=== PATIENT | male | born 1935 | race Caucasian/White ===

== ENCOUNTER → 2016-08-25 | Outpatient (CLI) | payer BC ==
[~2016-08-25] MED LIST: ASPEC81 PO; CLTP PO; CYT100 PO; FRRS300 PO; GLCSC750600; LPT40 PO; MULT-506 PO; NRV5 PO; NXM/40 PO; OMEG10007 PO; RNXER500 PO; SALSALATE; STLS; [UNRECOGNIZED DRUG - REMARK]
[2016-08-25 13:21] LABS: HEMATOCRIT 40.7 % (42-52); MEAN CELL VOLUME 96.7 fL (80-100); MEAN CORPUSCULAR HGB CONC 34.2 g/dl (32-36); MEAN PLATELET VOLUME 10.6 fL (7.4-10.4); PLATELET COUNT 222 K/uL (130-400); RED BLOOD COUNT 4.21 M/uL (4.7-6.1); WHITE BLOOD COUNT 5.98 K/uL (4.8-10.8)
[2016-08-25 13:52] LABS: ALT/SGPT 23 U/L (12-78); AST/SGOT 17 U/L (15-37); BLOOD UREA NITROGEN 15 mg/dl (7-18); BUN/CREATININE RATIO 13.3 (10-20); CALCIUM 8.9 mg/dl (8.5-10.1); CARBON DIOXIDE 33 mmol/L (21-32); CHLORIDE 102 mmol/L (98-107); GLUCOSE 90 mg/dl (70-99); MAGNESIUM 2.3 mg/dl (1.8-2.4); POTASSIUM 4.1 mmol/L (3.5-5.1); SODIUM 140 mmol/L (136-145)
[2016-08-25 13:55] LABS: CHOLESTEROL 98 mg/dl (0-200); CHOLESTEROL/HDL RATIO 1.4; HDL CHOLESTEROL 71 mg/dl; LDL CHOLESTEROL CALCULATED 8 mg/dl; TRIGLYCERIDES 94 mg/dl (0-150); VERY LOW DENSITY LIPOPROT CALC 19 mg/dl
== END | disposition home or self-care (01) ==
LOC: C.LAB1850 11:57
PROVIDERS: ATTEND Physician Assistant Medical
DX: E78.00 Pure hypercholesterolemia, unspecified (principal); I25.10 Atherosclerotic heart disease of native coronary artery without angina pectoris; I20.9 Angina pectoris, unspecified; I42.9 Cardiomyopathy, unspecified

== ENCOUNTER 2019-07-17 21:14 | Inpatient (IN) ==
[2019-07-18] MEDS ORDERED: ONDANSETRON INJ 2 MG/ML 2 ML VIAL IV PRN ×2 (00:47→14:44)
[2019-07-18] MEDS ORDERED: KETOROLAC TROMETHAMINE 15 MG/ML VIAL IV PRN (02:18)
[2019-07-18] MEDS ORDERED: MoRPHine SULFATE 2 MG/ML CARP IV PRN ×2 (02:22→16:15)
[2019-07-18] MEDS: MoRPHine SULFATE 2 MG/ML CARP IV PRN ×4 (02:41→10:44)
--- NOTE | 2019-07-18 03:24 | History & Physical Report ---
Date of Service July 18, 2019 Assessment & Plan (1) SBO (small bowel obstruction): 84-year-old male with a past medical history of CAD status post CABG x2, hyperlipidemia, GERD, heart disease, hypertension, PAF, BPH, bilateral lower extremity edema, unstable angina who presents as a transfer from [facility] for management and evaluation of SBO. #Small bowel obstruction Patient without a history of small bowel obstructions, or abdominal surgery presented with acute onset of abdominal pain to [facility]. Imaging at their institution was consistent with an SBO, laboratory findings were pertinent for a white count of 14 and a lactate of 2.7. Given nontoxic appearance of the patient, relatively good control of abdominal pain, negative imaging for rupture, negative rebound or guarding, negative signs of acute abdomen. It is hard to discern whether the patient was given oral contrast based on the records obtained from [facility], however if he was an abdominal flatplate obtained in the morning will likely indicate whether it is past the obstruction or not. Will manage conservatively with medical therapy. -Consult general surgery -Make patient n.p.o. -Maintenance IVF with LR @ 100 -Morphine 2 mg every 2 hours as needed for pain may have an additional dose of not effective within 30 minutes of administration -Obtain abdominal flatplate in the morning -Monitor for signs and symptoms of progression to acute abdomen #Esophageal reflux Patient with a history of chronic GERD well-controlled on esomeprazole 40 mg at home. -We will convert to IV ranitidine 50 mg every 8 hours #Paroxysmal atrial fibrillation/flutter Patient with history of paroxysmal atrial fibrillation/flutter chronically anticoagulated with apixaban. Surgery of [facility] was uncomfortable with patient's anticoagulation status and therefore was unable to provide surgical backup to the hospitalist team. Patient was subsequently transferred to [facility]. -Holding apixaban in the event that urgent surgery is required -Would consider starting heparin tomorrow pending surgery evaluation -Currently regular rate and rhythm and well-controlled -Monitor for now #Unstable angina -Holding antianginals in the setting of critical illness as we would want to be aware of chest pain should occur #History of BPH with urinary obstruction Well-controlled with tamsulosin 0.4 mg daily while at home, holding in the setting of SBO -Resume tamsulosin when able #Allergies Well-controlled with daily sertraline holding in the setting of SBO -Resume sertraline when able #Hypercholesterolemia/coronary artery disease Patient with history of extensive coronary artery disease requiring CABG x2. Patient currently on maximum dose of atorvastatin 80 mg daily. Holding in the setting of SBO -Resume atorvastatin when able #Peripheral edema Patient followed by [facility] cardiology for problems as described above. He has a history of lower extremity edema which developed around the holidays echo on 06/08/2019 showed an LVEF of 40% with global hypokinesis patient is asymptomatic from a heart failure perspective with the exception of mild pedal edema. Given the fact that he has no heart failure symptoms, will hold p.o. diuretics and forego replacing with IV. -Resume triamterene hydrochlorothiazide when able FENa: N.p.o. Code Status: Full DVT PPX: Mechanical PT/OT: Not indicated Dispo: Mita Perez MD PGY 2, FCM This chart was completed utilizing [employer] dictation voice recognition software. Grammatical errors, random word insertions, pronoun errors, and in complete sentences are an occasional consequence of the system. Any questions or concerns about the content, text, or information contained within the body of this dictation should be addressed directly to the physician for clarification. (2) Esophageal reflux: (3) Atrial flutter, paroxysmal: (4) Unstable angina: (5) Hypercholesterolemia: (6) Allergies: (7) Benign prostatic hyperplasia with urinary obstruction: (8) Paroxysmal atrial fibrillation: History of Present Illness 84-year-old male with a past medical history of CAD status post CABG x2, hyperlipidemia, GERD, heart disease, hypertension, PAF, BPH, bilateral lower extremity edema, unstable angina who presents as a transfer from [facility] for management and evaluation of SBO. Patient reports the symptoms started this afternoon rapidly. He began with his abdomen becoming sore he described the pain is cyclic in nature ranging from a 10 out of 10 to a 1 out of 10. This persisted for a period of an hour or so at which point his urged him to go to urgent care he presented. He presented to urgent care and was evaluated and subsequently recommended to proceed to the ER. He proceeded [facility] ER where he was evaluated, his white count was determined to be 14, lactate 2.7 glucose 142. He was afebrile but hypertensive at [facility], CT of the abdomen/pelvis was obtained and demonstrated findings consistent with SBO with a possible transition point in the left lower quadrant. No free air or free fluid was observed. Tree-in-bud opacities in the right lower lobe likely representing small airway disease of infection to amatory etiology. [facility] surgery was consulted and reported he will not be able to have surgery secondary to Eliquis furthermore the surgeon goes off call in 2 days. The [facility] hospital service was unwilling to accept him without surgical backup and therefore is transferred to [facility] for further evaluate admission and management of a small bowel obstruction. Upon arrival to [facility] the patient was not no acute distress lying in bed comfortably. He reported his abdominal pain was previously well controlled at [facility] with Dilaudid however has since been worsening, requesting additional analgesia. Otherwise patient denies any recent fevers, chills, nausea, vomiting, diarrhea, chest pressure, chest pain, shortness of breath, focal abdominal pain, unremitting abdominal pain, CVA tenderness, or other concerning signs or symptoms. Patient does report a recent history of constipation occurring today, he strained significantly will try to have a bowel movement earlier today and this causes abdominal pain to worsen in nature. Patient reports last bowel movement was yesterday evening. He has been n.p.o. throughout the day. Acute concerns at present relate to resolution of his SBO. Primary Care Provider: Murali Tracy Allergies Allergy/AdvReac Type Severity Reaction Status Date / Time oxymetazoline AdvReac Unknown Fainting Verified 07/18/19 02:21 phenylephrine AdvReac Unknown headache, Unverified 06/14/19 10:49 high BP Home Medications Home Medications Medication Instructions Recorded Confirmed Type cetirizine 10 mg tablet 10 mg PO DAILY tab 01/01/19 07/18/19 History docusate sodium 100 mg tablet 250 mg PO BID tab 01/01/19 07/18/19 History esomeprazole magnesium 40 mg 40 mg PO DAILY #90 cap 01/01/19 06/14/19 History capsule,delayed release ferrous sulfate 325 mg (65 mg 325 mg PO BID tab 01/01/19 06/14/19 History iron) tablet isosorbide dinitrate 10 mg tablet 5 mg PO ONCE PRN #90 tab 08/12/19 02/26/20 History multivitamin 1 tab PO DAILY 01/01/19 07/18/19 History nitroglycerin 0.4 mg sublingual 0.4 mg SL Q5M PRN #1 tab 01/01/19 06/14/19 History tablet triamterene 37.5 1 cap PO DAILY #90 cap 01/01/19 07/18/19 History mg-hydrochlorothiazide 25 mg capsule apixaban 2.5 mg tablet 2.5 mg PO BID 01/15/19 07/18/19 History isosorbide mononitrate 120 mg 240 mg PO DAILY #180 tab 04/24/19 07/18/19 Rx tablet,extended release 24 hr atorvastatin 80 mg tablet 80 mg PO DAILY #90 tab 07/16/19 07/18/19 Rx Past Med/Surg History Medical History Atrial flutter, paroxysmal (Acute) Benign prostatic hyperplasia with urinary obstruction (Acute) CAD in [place] artery (Acute) Edema of both legs (Acute) Esophageal reflux (Acute) Hypercholesterolemia (Acute) Imbalance (Acute) Paroxysmal atrial fibrillation Unstable angina (Acute) Social History Preferred Language: Setswana Communication Ability: Effective Jack Prizer Required: No Beliefs That Will Affect Care: None marital status: Current Living Situation: Spouse and Family Other Information That Helps Us Care for You: No Feels Safe at Home: Yes Safety Concerns: Feels Safe At This Time Smoking Status: Never smoker Do You Dip or Chew Tobacco: No ; Second Hand Exposure: No ; Tobacco Cessation Education Requested by Patient: No Hx Alcohol Use: Yes Alcohol type: wine Hx Substance Use: No Review of Systems Review of Systems: All systems reviewed & are unremarkable except as noted in HPI & below Physical Exam Physical Exam: General: Elderly gentleman appearing his stated age lying in bed in no acute distress HEENT: Normocephalic atraumatic, Neck: Normal to visual inspection, trachea midline, did not appreciate significant JVD Cardiac: Regular rate and rhythm I did not appreciate significant murmurs rubs or gallops, normal S1, normal S2, 1+ pedal edema bilaterally, negative calf tenderness Respiratory: Diminished breath sounds bilaterally with intermittent rhonchi appear to clear with coughing symmetrical chest expansion no increased work of breathing GI: Hyperactive bowel sounds present, soft, tender throughout all abdominal quadrants, no rebound, no guarding, no focal tenderness MSK: Moves all extremities Skin: No acute changes Neuro: Alert and oriented x4 Psych: Calm and cooperative Results & Data Vital Signs (Past 12 Hours) Vital Signs Temp Pulse Resp BP Pulse Ox 07/18/19 00:15 37.0 C 55 L 16 125/68 98 Code Status & VTE Plan Code Status Full Supervising Physician Co-Signing Physician Notes Attending addendum: I have physically seen this patient, have supervised the medical residents activities, and agree with the H&P unless as otherwise noted. Assessment and Plan: Small bowel obstruction- Patient initially presented to outside [facility] emergency department with complaint of acute onset of abdominal pain. Work-up at that time revealed a small bowel obstruction. Patient has no previous obstructions or abdominal surgeries. He was accepted in transfer to [facility] for further evaluation and treatment. NPO LR at 100 mils per hour Zofran 4 mg IV every 6 hours as needed. Zosyn 3.375 mg IV every 8 hours Acetaminophen 1 g IV every 8 hours PRN mild pain or temperature. Morphine sulfate 2 mg IV every 3 hours as needed severe pain. GERD- Holding Nexium 40 mg p.o. daily. Famotidine 20 mg IV every 12 hours. Remainder of orders and notations as noted. Resident Activity Tracking Resident Involvement: Resident Care Provided Care Provided: Adult Hospital Medicine
[2019-07-18] MEDS: LACTATED RINGER'S 1,000 ML IV SCH ×3 (04:38→19:20)
--- NOTE | 2019-07-18 07:54 | Surgery Consultation ---
Date of Consultation July 18, 2019 This very pleasant 84-year-old gentleman was transferred from [facility] last evening with a history of bowel obstruction that is started approximately 24 or so hours prior to transfer he describes his pain intermittent up to a 10 down to a 2 nauseated but no emesis and never had any previous pain like this before Denies any previous surgical history is significant coronary artery disease on Eliquis States has had recent weight loss but this was attributed mostly to the situation where he has been taking care of his daughter who is 52 years old and her son after she had an accident that required multiple surgeries on her neck and clavicle In general he is enjoyed good health other than the coronary artery disease and is been seen here regularly by our vacuum 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 operator Assessment & Plan (1) SBO (small bowel obstruction): I discussed with the patient the current situation at this time there is no urgency into the surgery but is concerning that he had significant pain and by CAT scan report his bowel obstruction without any previous surgery I did mention to him that we would probably get further studies including an upper GI series with small bowel follow-through to visualize the possibility of a primary small bowel tumor as the cause of the obstruction We were able finally to download the disc that was sent with the patient last evening and I reviewed the CT scan of the abdomen with our radiologist and I felt that possibility may be a total transition point down in the pelvis and decompressed terminal ileum there is no true evidence of any internal hernia there is no evidence of any bowel wall ischemia no pneumatosis may have a little mesenteric edema At this point as stated above we will proceed with the upper GI with small bowel follow-through keep n.p.o. he has been off Eliquis now and if anything needs to be explored but there is no urgency at this time unless his clinical situation deteriorates Lactic acid was elevated 2.7 from outside hospital we will go ahead and repeated now Present on Admission?: Yes History of Present Illness Reason for Consultation: Bowel obstruction Attending Physician: Jack Zhou MD Allergies Allergy/AdvReac Type Severity Reaction Status Date / Time oxymetazoline AdvReac Unknown Fainting Verified 07/18/19 02:21 phenylephrine AdvReac Unknown headache, Unverified 06/14/19 10:49 high BP Home Medications Home Medications Medication Instructions Recorded Confirmed Type cetirizine 10 mg tablet 10 mg PO DAILY tab 01/01/19 07/18/19 History docusate sodium 100 mg tablet 250 mg PO BID tab 01/01/19 07/18/19 History esomeprazole magnesium 40 mg 40 mg PO DAILY #90 cap 01/01/19 06/14/19 History capsule,delayed release ferrous sulfate 325 mg (65 mg 325 mg PO BID tab 01/01/19 06/14/19 History iron) tablet isosorbide dinitrate 10 mg tablet 5 mg PO ONCE PRN #90 tab 01/01/19 07/18/19 History multivitamin 1 tab PO DAILY 01/01/19 07/18/19 History nitroglycerin 0.4 mg sublingual 0.4 mg SL Q5M PRN #1 tab 01/01/19 06/14/19 History tablet triamterene 37.5 1 cap PO DAILY #90 cap 01/01/19 07/18/19 History mg-hydrochlorothiazide 25 mg capsule apixaban 2.5 mg tablet 2.5 mg PO BID 01/15/19 07/18/19 History isosorbide mononitrate 120 mg 240 mg PO DAILY #180 tab 04/24/19 07/18/19 Rx tablet,extended release 24 hr atorvastatin 80 mg tablet 80 mg PO DAILY #90 tab 07/16/19 07/18/19 Rx Patient History Medical History Atrial flutter, paroxysmal (Acute) Benign prostatic hyperplasia with urinary obstruction (Acute) CAD in [place] artery (Acute) Edema of both legs (Acute) Esophageal reflux (Acute) Hypercholesterolemia (Acute) Imbalance (Acute) Paroxysmal atrial fibrillation Unstable angina (Acute) Social History Preferred Language: Sudanese Communication Ability: Effective Formulation Scientist Required: No Beliefs That Will Affect Care: None Current Living Situation: Spouse and Family Other Information That Helps Us Care for You: No Feels Safe at Home: Yes Safety Concerns: Feels Safe At This Time Smoking Status: Never smoker Do You Dip or Chew Tobacco: No ; Second Hand Exposure: No ; Tobacco Cessation Education Requested by Patient: No Hx Alcohol Use: Yes Alcohol type: wine Hx Substance Use: No Physical Exam Physical Exam: This morning is alert coherent not in any distress is not complaining of any abdominal pain in fact he had a the pain medicine given to him last evening and slept well during the night Constitutional: WD/WN, vitals as above well developed, well nourished and average body habitus Eyes: PERRL, conjunctivae normal, anicteric sclerae ENMT: external ear and nose normal, oropharynx normal Neck: trachea midline, no thyromegaly Respiratory: normal respiratory effort, lungs clear to auscultation Cardiovascular: RRR, no murmur, no edema Gastrointestinal (Abdomen): The abdomen is completely benign no tenderness no guarding although appears to be minimally distended there is no inguinal hernias Results & Data Vital Signs (Past 12 Hours) Vital Signs Temp Pulse Resp BP Pulse Ox 07/18/19 07:00 37.1 C 59 L 16 144/75 H 97 07/18/19 00:15 37.0 C 55 L 16 125/68 98 PG Care Time/CCT Total # of Minutes Spent Total Time Spent with Patient: Total time spent is greater than 50% in coordination of care (as documented) at patient's floor/unit and/or counseling patient: Coding Level of Care Code 35935 Inpt Consult Level 4 Diagnoses SBO (small bowel obstruction) K56.609
[2019-07-18] MEDS ORDERED: POLYETHYLENE (MIRALAX) 17 GM PACK PO SCH (09:00)
[2019-07-18 10:32] LABS: Basophils # (auto) 0.02 K/uL (0-0.2); Basophils % (auto) 0.1 %; Eosinophils # (auto) 0.01 K/uL (0-0.5); Eosinophils % (auto) 0.1 %; Hematocrit (blood only) 42.2 % (42-52); Hemoglobin 14.2 g/dL (14.0-18.0); Immature Granulocytes # (auto) 0.03 K/uL (0.00-0.02); Immature Granulocytes % (auto) 0.2 %; Lymphocytes # (auto) 0.66 K/uL (1.2-3.4); Lymphocytes % (auto) 4.1 %; Mean Corpuscular Hemoglobin 32.9 pg (25-34); Mean Corpuscular Hgb Conc 33.6 g/dL (32-36); Mean Corpuscular Volume 97.7 fL (80-100); Mean Platelet Volume 10.8 fL (7.4-10.4); Monocytes # (auto) 1.23 K/uL (0.11-0.59); Monocytes % (auto) 7.7 %; Neutrophils # (auto) 14.08 K/uL (1.4-6.5); Neutrophils % (auto) 87.8 %; Platelet Count 160 K/uL (130-400); RDW Coefficient of Variation 15.8 % (11.5-14.5); Red Blood Count 4.32 M/uL (4.7-6.1); White Blood Count 16.03 K/uL (4.8-10.8)
[2019-07-18 10:48] LABS: BUN Creatinine Ratio 15.2 (10-20); Blood Urea Nitrogen 16 mg/dl (7-18); Calcium 9.7 mg/dl (8.5-10.1); Carbon Dioxide 29 mmol/L (21-32); Chloride 105 mmol/L (98-107); Est GFR (African American) 77.1; Est GFR (Non-African American) 66.6; Glucose 124 mg/dl (70-99); Potassium 3.8 mmol/L (3.5-5.1); Sodium 140 mmol/L (136-145)
--- NOTE | 2019-07-18 12:45 | History & Physical Bridge Note ---
Date of Service July 18, 2019 History & Physical Bridge Note I have examined the patient, reviewed the History & Physical and in the interval since the performance of the History & Physical I have noted the following changes of clinical significance: no changes noted Been following the upper GI with small bowel follow-through proximal and 90 minutes still in the small bowel and appears to have more distention loop of bowel down towards the pelvis patient clinically has hiccups now has not vomited but is complaining more abdominal pain the abdomen exam is a little bit more distended than it was therefore I recommended that we proceed with exploratory lap at this time risk and complications were explained to patient including the possibility of bowel resection and bleeding infection he last took Eliquis last yesterday discussed with OR and they will be available fairly quickly thank you
--- NOTE | 2019-07-18 12:58 | Anesthesiology Consultation ---
Date of Service July 18, 2019 Assessment & Plan Chart Review Chart Review: Acceptable Risk for Surgery and Patient NOT seen in Pre Admission Testing Consults Requested none ASA [id number] Proposed Anesthesia Anesthesia Type: General Anesthesia Line Insertion: Arterial line Risk / Benefits Reviewed With: PT / POA / Parent / Guardian, Accepts Plan and Informed Consent Obtained History Surgery Operation Date: 07/18/19 10:25 Proposed Procedures p Exploratory Laparotomy - Bernardo Gutiérrez MD Height/Weight Weight: 68.1 kg Allergies Allergy/AdvReac Type Severity Reaction Status Date / Time oxymetazoline AdvReac Unknown Fainting Verified 07/18/19 02:21 phenylephrine AdvReac Unknown headache, Unverified 06/14/19 10:49 high BP Medications Home Medications Medication Instructions Recorded Confirmed Last Taken cetirizine 10 mg tablet 10 mg PO DAILY tab 01/01/19 07/18/19 Unknown docusate sodium 100 mg tablet 250 mg PO BID tab 01/01/19 07/18/19 Unknown esomeprazole magnesium 40 mg 40 mg PO DAILY #90 cap 01/01/19 06/14/19 Unknown capsule,delayed release ferrous sulfate 325 mg (65 mg 325 mg PO BID tab 01/01/19 06/14/19 Unknown iron) tablet isosorbide dinitrate 10 mg tablet 5 mg PO ONCE PRN #90 tab 01/01/19 07/18/19 Unknown multivitamin 1 tab PO DAILY 01/01/19 07/18/19 Unknown nitroglycerin 0.4 mg sublingual 0.4 mg SL Q5M PRN #1 tab 01/01/19 06/14/19 Unknown tablet triamterene 37.5 1 cap PO DAILY #90 cap 01/01/19 07/18/19 Unknown mg-hydrochlorothiazide 25 mg capsule apixaban 2.5 mg tablet 2.5 mg PO BID 01/15/19 07/18/19 Unknown isosorbide mononitrate 120 mg 240 mg PO DAILY #180 tab 04/24/19 07/18/19 Unknown tablet,extended release 24 hr atorvastatin 80 mg tablet 80 mg PO DAILY #90 tab 07/16/19 07/18/19 Unknown Active Medications Generic Name Dose Route Start Last Admin Trade Name Freq PRN Reason Stop Dose Admin Ranitidine HCl 50 mg/ Dextrose 102 mls @ 200 mls/hr 07/18/19 04:00 07/18/19 11:59 IV 08/17/19 03:59 200 mls/hr Q8H KASI Administration Lactated Ringer's 1,000 mls @ 150 mls/hr 07/18/19 03:30 07/18/19 12:00 Lr IV 08/17/19 03:29 100 mls/hr .[id number] KASI Administration Morphine Sulfate 2 mg 07/18/19 02:30 07/18/19 10:44 Morphine Sulfate IV 08/01/19 02:21 2 mg Q2H PRN Administration Pain Polyethylene Glycol 17 gm 07/18/19 09:00 07/18/19 10:13 Miralax Powder Packet PO 08/17/19 08:59 Not Given BID KASI NPO Date Last Intake of Fluids: 07/16/19 Time Last Intake of Fluids: 17:00 Date Last Intake of Solids: 07/16/19 Time Last Intake of Solids: 17:00 Past Medical History Medical History Atrial flutter, paroxysmal (Acute) Benign prostatic hyperplasia with urinary obstruction (Acute) CAD in [place] artery (Acute) Edema of both legs (Acute) Esophageal reflux (Acute) Hypercholesterolemia (Acute) Imbalance (Acute) Paroxysmal atrial fibrillation Unstable angina (Acute) Exercise / Class Metabolic Activity III < 4 Walking/Shop/Light housework Past Anesthesia History No Hx of Anesthesia Complications and No Family Hx of Anesthesia Complications History of PONV No Hx of PONV and No Hx of Motion Sickness Social History Smoking Status: Never smoker Do You Dip or Chew Tobacco: No Hx Alcohol Use: Yes Alcohol type: wine alcohol intake frequency: a few times a month Hx Substance Use: No substance use type: does not use Physical Exam Vital Signs Last Vital Signs Temp 37.1 C 07/18/19 07:00 Pulse 59 L 07/18/19 07:00 Resp 16 07/18/19 07:00 BP 144/75 H 07/18/19 07:00 Pulse Ox 97 07/18/19 07:00 Constitutional not obese ENMT Mouth: + dentition abnormality, + edentulous and + poor dentition Thyromental Distance: > or= 3.5 Finger Breadths Mallampati Class: II Neck normal visual inspection, trachea midline and + facial hair; neck extension not limited Respiratory normal respiratory effort Auscultation: lungs clear to auscultation bilaterally Cardiovascular Rate/Rhythm: regular rate and regular rhythm Heart Sounds: no murmur Vessels: no carotid bruit Musculoskeletal Spine: normal cervical ROM Neurologic moves all extremities Motor/Sensory: no sensory deficit Psychiatric Orientation: alert and oriented x 3 Testing Laboratory Results 07/18/19 10:23 07/18/19 10:23
[2019-07-18] MEDS ORDERED: fentaNYL citrate 100 MCG/2 ML VIAL ONE ×2 (13:20→14:01)
[2019-07-18] MEDS ORDERED: ROCURONIUM BROMIDE 10 MG/ML 5 ML VIAL ONE (13:20)
[2019-07-18] MEDS ORDERED: PROPOFOL IV EMULSION 10 MG/ML 20 ML VIAL IV ONE (13:20)
[2019-07-18] MEDS ORDERED: LIDOCAINE HCL 2% 2 ML VIAL/AMP(20MG/ML) INFIL ONE (13:20)
[2019-07-18] MEDS ORDERED: ONDANSETRON INJ 2 MG/ML 2 ML VIAL ONE (13:23)
--- NOTE | 2019-07-18 13:31 | Fluoroscopy Report ---
FL small bowel study CLINICAL HISTORY: Small bowel obstruction.Mid abdominal pain. COMPARISON STUDY: Abdomen and pelvis CT 07/17/2019. FINDINGS: 9 overhead images were obtained of the abdomen and pelvis. Fluoroscopy was not performed fo r the examination. The examination was terminated early due to the fact that the patient was taken to the OR for treatment of the small bowel obstruction. Equipment Operator [employer] images demonstrate a left total hip arthr oplasty. There is contrast within the bladder from the recent CT examination. The patient swallowed d ilated Optiray 300. Total imaging time was 3 hours. Multiple dilated loops of small bowel within the lower abdomen. Contrast did not reach the cecum on this study. Findings are consistent with a persist ent small bowel obstruction. IMPRESSION: Above findings consistent with a persistent small bowel obstruction. The study was termin ated early due to the fact the patient was taken to the OR for treatment of the small bowel obstructi on. ACT 112: Negative or not required by law. Electronically signed by: Damir Redding M.D. 07/18/2019 1:30 PM
[2019-07-18] MEDS ORDERED: ACETAMINOPHEN 1000 MG/100 ML IV IV ONE (13:39)
[2019-07-18] MEDS: BUPIVACAINE 0.5 % 5 MG/1 ML MPF 30ML VIAL ONE ×2 (14:00→14:21)
[2019-07-18] MEDS ORDERED: NEOSTIGMINE METHYLSULFATE 5 MG/5 ML SYR ONE (14:20)
[2019-07-18] MEDS ORDERED: SUCCINYLCHOLINE CHLORIDE 20 MG/ML 10 ML VIAL ONE (14:20)
[2019-07-18] MEDS ORDERED: GLYCOPYRROLATE 0.2 MG/ML VIAL ONE (14:20)
--- NOTE | 2019-07-18 14:28 | Post Operative Brief Note ---
PG Immediate Post Op with CF Date of Surgery July 18, 2019 Pre & Post Diagnosis Operation Date: 07/18/19 10:25 Pre-Op Diagnosis: ACUTE ABDOMINAL PAIN, SMALL BOWEL OBSTRUCTION Post-Op Diagnosis: Multiple Instestinal Webs I identified the patient and participated in the time-out.: Yes Procedure Operation Date: 07/18/19 10:25 Actual Procedures p Exploratory Laparotomy(Not Applicable) - Bernardo Gutiérrez MD Surgeon Bernardo Gutiérrez MD [place] Closer b annalisa delvalle Estimated Blood Loss 5 Findings Consistent with Post-Op Diagnosis Specimens Specimen Description: 1: Urine for Culture
--- NOTE | 2019-07-18 14:38 | Operative Report ---
PG Post Operative Report Pre & Post Diagnosis Operation Date: 07/18/19 10:25 Pre-Op Diagnosis: ACUTE ABDOMINAL PAIN, SMALL BOWEL OBSTRUCTION Post-Op Diagnosis: Multiple Instestinal Webs I identified the patient and participated in the time-out.: Yes Procedure Operation Date: 07/18/19 10:25 Actual Procedures p Exploratory Laparotomy(Not Applicable) - Bernardo Gutiérrez MD The patient was brought into the operating theater general endotracheal anesthesia arterial line was positioned in the left radial NG tube was placed Bonilla catheter inserted the abdomen was prepped with Betadine solution properly draped systemic antibiotics given timeout was had patient was identified we made an incision just the left of the umbilicus distally for approximately 2-1/2 inches deep to the subcutaneous tissue we entered the abdomen where we had patient have some fluid was clear serous in nature the small bowel appeared grossly well perfused we then at this point start eviscerating the patient we started at the ligament of Treitz and one distally there is moderate amount of distention in the small bowel but as we got into the mid jejunal area and tow ards the ileum we could see multiple areas that look like labs initially thought that he may have been one side where the patient may have had a band that was constricting externally the serosa and the bowel wall but we were able to milk this and it went right through and we could feel the wall itself appeared a little bit indurated but certainly not compromising the lumen as we were able to milk this all the way through this 1 area we went further down and we find multiple similar areas that almost look like individual sausage links H extending about 10 cm from one another all of the same consistency but again we were able to push through and milked the contents of the bowel without any problem of note once we are in a distal jejunum and ileum area the ileum appeared to be without any webs as I called days and of normal color and dimension were able to free and milked this all the way down into the cecum the appendix is visualized there was not extremely dilated and the cecum appeared grossly normal. At this point we checked the area for hemostasis and appears satisfactory I had marked 1 of these webs initially with a long silk to go back and retrieve it and since we did not do any significant any resection I cut the suture at the end. I positioned the NG tube at about 55 cm field and in the stomach. The rest of the abdomen did not feel any pathology. The abdomen was then closed with interrupted #1 PDS [id number] shilpi for skin edges dressing was applied estimated blood loss about 5 cc addendum as far as the etiology of this it seems like he is here for from reason had multiple as I call him intestinal webs without any stricture intraluminally of questionable etiology. Cesar joiner and Ruth Ann Joiner most assisted with exposure and retraction on this case Surgeon Bernardo Gutiérrez MD [employer] josefa joiner Estimated Blood Loss 5 Findings Consistent with Post-Op Diagnosis Specimens none Description of Procedure merda I attest to the content of the Intraoperative Record and any orders documented therein. Any exceptions are noted below.
[2019-07-18] MEDS ORDERED: ATROPINE SULFATE 0.1 MG/ML 10ML SYR IV PRN (14:44)
[2019-07-18] MEDS ORDERED: fentaNYL citrate 100 MCG/2 ML VIAL IV PRN (14:44)
[2019-07-18] MEDS ORDERED: NALOXONE HCL 0.4 MG/1 ML VIAL/CARP IV PRN (14:44)
[2019-07-18] MEDS ORDERED: PROMETHAZINE HCL 12.5 MG in SODIUM CHLORIDE 0.9% 50 ML IV PRN (14:44)
[2019-07-18] MEDS ORDERED: LABETALOL HCL IV 5 MG/ML 20ML IV PRN (14:44)
[2019-07-18] MEDS ORDERED: HYDROmorphone INJ 1 MG/ML SYRINGE IV PRN (14:44)
[2019-07-18] MEDS ORDERED: FLUMAZENIL 0.1 MG/1 ML 10 ML VIAL IV PRN (14:44)
--- NOTE | 2019-07-18 15:05 | Electrocardiogram Report ---
Test Reason : Blood Pressure : / mmHG Vent. Rate : 068 BPM Atrial Rate : 214 BPM P-R Int : 000 ms QRS Dur : 094 ms QT Int : 424 ms P-R-T Axes : 118 010 -16 degrees QTc Int : 450 ms Atrial flutter with variable A-V block with premature ventricular or aberrantly conducted complexes Abnormal ECG When compared with ECG of 13-MAR-2015 06:36, Atrial flutter has replaced Sinus rhythm Confirmed by Andrey Yuan ([id number]) on 07/18/2019 3:04:50 PM Referred By: Jack Zhou Confirmed By:Joe Yuan
--- NOTE | 2019-07-18 15:15 | Anesthesiology Progress Note ---
Date of Service July 18, 2019 Anesthesia Post Procedure Vital Signs Vital Signs: Temp Pulse Pulse Resp BP Pulse Ox 07/18/19 15:10 60 16 152/72 H 100 07/18/19 15:00 70 16 151/76 H 100 07/18/19 14:50 68 15 159/70 H 100 07/18/19 14:43 36.4 C L 67 16 159/85 H 94 07/18/19 13:06 36.8 C 64 20 130/72 97 07/18/19 07:00 37.1 C 59 L 16 144/75 H 97 07/18/19 00:15 37.0 C 55 L 16 125/68 98 Transfer of Care Handoff Completed per policy Notes Mental Status: alert / awake / arousable Patient Amnestic to Procedure: Yes Nausea / Vomiting: adequately controlled Pain: adequately controlled Airway Patency, RR, SpO2: stable & adequate BP & HR: stable & adequate Hydration State: stable & adequate Anesthetic Complications: no major complications apparent
[2019-07-18] MEDS ORDERED: MoRPHine SULFATE 4 MG/ML 1 ML CARP\\VIAL IV PRN (16:15)
--- NOTE | 2019-07-18 18:44 | Hospitalist Progress Note ---
Date of Service July 18, 2019 Assessment & Plan (1) SBO (small bowel obstruction): This patient is an 84-year-old male with a past medical history of CAD status post CABG x2, hyperlipidemia, GERD, heart disease, hypertension, PAF, BPH who presents as a transfer from [facility] for management and evaluation of SBO. Small bowel obstruction Patient without a history of small bowel obstructions, or abdominal surgery presented with acute onset of abdominal pain to [facility]. Imaging at their institution was consistent with an SBO, laboratory findings were pertinent for a white count of 14 and a lactate of 2.7. Given nontoxic appearance of the patient, relatively good control of abdominal pain, negative imaging for perforation, negative rebound or guarding, negative signs of acute abdomen, he was transferred here for further evaluation by general surgery -Consult general surgery appreciated-had small bowel follow-through which showed delayed movement of contrast-surgery took him for exploratory laparotomy on 07/18 Findings consistent with multiple bands throughout the small intestine that constricted it and likely contributed to the intestine folding on itself No lysis of adhesions was necessary but the bowel was run and there was no tumor found -Postoperative management as per surgery -Continue n.p.o. status -Continue maintenance IVF with LR @ 100 -Continue morphine and IV Tylenol as needed for pain -He was given 1 dose of cefoxitin #Peripheral edema Patient followed by [facility] cardiology for problems as described above. He has a history of lower extremity edema which developed around the holidays echo on 06/08/2019 showed an LVEF of 40% with global hypokinesis patient is asymptomatic from a heart failure perspective with the exception of mild pedal edema. Given the fact that he has no heart failure symptoms, will hold p.o. diuretics and forego replacing with IV. -Resume triamterene hydrochlorothiazide when able (2) Cardiomyopathy: Previously Resolved Cardiomyopathy (Recent Echo 06/08/2019 at [facility] showed LVEF 40%,Global Hypokinesis) -Watch for volume overload with IV fluids -Holding home diuretic Follows with cardiology-Chas Chen (3) Paroxysmal atrial fibrillation: Patient with history of paroxysmal atrial fibrillation/flutter chronically anticoagulated with apixaban. He is not on any AV mari blocking agents as an outpatient Remains in rate controlled atrial fibrillation here on telemetry -Continue holding Eliquis due to surgery -Consider starting heparin drip when okay with surgery but okay to remain off of it for now -Continue telemetry monitoring (4) Benign prostatic hyperplasia with urinary obstruction: Currently with Bonilla catheter in place -Watch for retention after discontinuation of Bonilla catheter Tamsulosin is mentioned in H&P but I do not see it has been recently prescribed -Consider starting tamsulosin if needed-we will double check with patient if he is on this at home (5) CAD in [place] artery: With a history of CABG No ischemic changes on EKG, no chest pains -Holding home apixaban, atorvastatin, and isosorbide (6) Esophageal reflux: Patient with a history of chronic GERD well-controlled on esomeprazole 40 mg at home. -Continue IV ranitidine 50 mg every 8 hours while n.p.o. (7) Hypercholesterolemia: Holding home atorvastatin while n.p.o. (8) Atrial flutter, paroxysmal: As above (9) Edema of both legs: No current edema -Holding Dyazide from home (10) DVT prophylaxis: Was on Eliquis, currently SCDs only due to surgery Disposition-remain on PCU Admission and Anticipated Discharge Date Admission Date: July 18, 2019 Anticipated date of discharge: 07/21/19 Subjective I saw the patient after he returned from surgery. He reports he was having some abdominal pain at the incision sites but otherwise feeling much better. He was asking when he will be discharged and when he can start eating again. He has not passed any flatus thus far. He denies nausea or vomiting. Denies chest pain or shortness of breath. He remains in rate controlled atrial fibrillation. He is a little bit confused and asked me if he can remove his own catheters Review of Systems Review of Systems: All systems reviewed & are unremarkable except as noted in HPI & below Physical Exam Constitutional: + thin; no acute distress Eyes: + anicteric sclerae Neck: trachea midline, no thyromegaly Respiratory: normal respiratory effort, lungs clear to auscultation Cardiovascular: Rate/Rhythm: regular rate and + irregularly irregular Heart Sounds: no murmur Extremities: no edema Chest (Breasts): Chest: + abnormal inspection of chest (Midline sternotomy scar visible) Gastrointestinal (Abdomen): Inspection/Auscultation: + hypoactive bowel sounds; + abdomen abnormal to inspection (Dressing in the lower midline is clean dry and intact) and abdomen not distended Percussion/Palpation: + abdomen tender (Over incision without guarding or rebound) and abdomen soft Musculoskeletal: Extremities: extremities normal to inspection; no cyanosis and no clubbing Skin: no rashes, warm and dry Neurologic: moves all extremities and awake; no focal motor deficits Psychiatric: Orientation: alert, oriented to person, oriented to place and cooperative Eye Contact: good eye contact Speech: normal rate/rhythm/volume of speech Affect: euthymic affect Genitourinary: no testicular masses, no penis abnormality (With Bonilla catheter in place draining clear yellow urine) Lymphatic: no lymphedema Results & Data ([facility]) Vital Signs (Past 12 Hours) Vital Signs Temp Pulse Pulse Pulse Pulse Resp BP 07/18/19 17:00 72 16 144/78 H 07/18/19 16:50 55 L 07/18/19 16:35 36.5 C 53 L 17 112/60 07/18/19 16:19 36.6 C 53 L 17 114/56 L 07/18/19 16:05 36.5 C 61 15 139/74 07/18/19 15:50 36.5 C 66 16 135/63 07/18/19 15:45 56 L 16 128/64 07/18/19 15:30 52 L 16 126/63 07/18/19 15:20 36.6 C 62 16 128/71 07/18/19 15:10 60 16 152/72 H 07/18/19 15:00 70 16 151/76 H 07/18/19 14:50 68 15 159/70 H 07/18/19 14:43 36.4 C L 67 16 159/85 H 07/18/19 13:06 36.8 C 64 20 130/72 07/18/19 07:00 37.1 C 59 L 16 144/75 H Pulse Ox 07/18/19 17:00 97 07/18/19 16:50 07/18/19 16:35 98 07/18/19 16:19 94 07/18/19 16:05 98 07/18/19 15:50 97 07/18/19 15:45 95 07/18/19 15:30 96 07/18/19 15:20 94 07/18/19 15:10 100 07/18/19 15:00 100 07/18/19 14:50 100 07/18/19 14:43 94 07/18/19 13:06 97 07/18/19 07:00 97 Laboratory Results Labs reviewed, WBC count elevated at 16, lactate down to 1.7, basic metabolic panel otherwise acceptable and within normal limits PG Care Time/CCT Total # of Minutes Spent Total Time Spent with Patient: Total time spent is greater than 50% in coordina tion of care (as documented) at patient's floor/unit and/or counseling patient: Coding Level of Care Code 41852 Subseq Hosp Care Lvl 3 Diagnoses SBO (small bowel obstruction) K56.609 Cardiomyopathy I42.9 Paroxysmal atrial fibrillation I48.0 Benign prostatic hyperplasia with urinary obstruction N40.1; N13.8 CAD in [place] artery I25.10 Esophageal reflux K21.9 Hypercholesterolemia E78.00 Atrial flutter, paroxysmal I48.92 Edema of both legs R60.0 DVT prophylaxis Z29.9
[2019-07-18] MEDS: ACETAMINOPHEN 1,000 MG/100 ML VIAL IV SCH (21:31)
[2019-07-19] MEDS: LACTATED RINGER'S 1,000 ML IV SCH ×3 (03:00→22:39)
--- NOTE | 2019-07-19 06:16 | Surgery Progress Note ---
Date of Service July 19, 2019 Assessment & Plan (1) SBO (small bowel obstruction): Intraoperative findings were discussed with the patient last evening and again this morning and voiced to him that it may take another 2448 hrs. until his GI function returns He has had no issues cardiac baldwin therefore may be able to discharge him to a regular floor later today I reassured him that his hematuria would resolve as he is continue to making urine and the clots are becoming less pronounced Present on Admission?: Yes Subjective Demario is resting comfortably at this time the nurse at the bedside monitoring the urinary drainage since the patient apparently tried to take out the Bonilla last night and developed some hematuria the nurse states that his slowed down she has good urine output although a few clots are noted Demario is not complaining of any abdominal pain just expected postoperative pain he is not nauseated and has not had any GI function at this time which we would expected take another 24 to 48 hours to reactivate Physical Exam Physical Exam: He is alert coherent in no distress feels better than he had pulled on his Bonilla The abdomen is softly distended as expected with the postoperative discomfort Results & Data Vital Signs (Past 12 Hours) Vital Signs Temp Pulse Pulse Resp BP Pulse Ox 07/19/19 03:30 37.0 C 56 L 18 122/67 99 07/18/19 23:22 36.9 C 53 L 18 95/50 L 96 07/18/19 20:01 37.0 C 72 18 127/73 95 07/18/19 19:12 36.8 C 61 19 118/62 96 PG Care Time/CCT Total # of Minutes Spent Total Time Spent with Patient: Total time spent is greater than 50% in coordination of care (as documented) at patient's floor/unit and/or counseling patient: Coding Level of Care Code None Diagnoses SBO (small bowel obstruction) K56.609
--- NOTE | 2019-07-19 06:27 | Billing Data ---
Date of Service July 19, 2019 Coding Level of Care Code 28258 Initial Inpt Care Lvl 3
[2019-07-19] MEDS: ACETAMINOPHEN 1,000 MG/100 ML VIAL IV SCH ×3 (06:36→21:14)
[2019-07-19 07:18] LABS: Mean Corpuscular Hgb Conc 32.4 g/dL (32-36); Mean Platelet Volume 11.5 fL (7.4-10.4); Platelet Count 136 K/uL (130-400)
[2019-07-19 07:41] LABS: Acanthocytes 2+; Basophils # (auto) 0.02 K/uL (0-0.2); Basophils % (auto) 0.2 %; Eosinophils # (auto) 0.01 K/uL (0-0.5); Eosinophils % (auto) 0.1 %; Hemoglobin 13.3 g/dL (14.0-18.0); Immature Granulocytes # (auto) 0.03 K/uL (0.00-0.02); Immature Granulocytes % (auto) 0.2 %; Lymphocytes # (auto) 0.42 K/uL (1.2-3.4); Lymphocytes % (auto) 3.4 %; Mean Corpuscular Hemoglobin 32.4 pg (25-34); Monocytes # (auto) 0.54 K/uL (0.11-0.59); Monocytes % (auto) 4.3 %; Neutrophils # (auto) 11.45 K/uL (1.4-6.5); Neutrophils % (auto) 91.8 %; RDW Coefficient of Variation 16.3 % (11.5-14.5); RDW Standard Deviation 59.9 fL (36.4-46.3); White Blood Count 12.47 K/uL (4.8-10.8)
[2019-07-19 07:52] LABS: BUN Creatinine Ratio 22.1 (10-20); Blood Urea Nitrogen 21 mg/dl (7-18); Calcium 8.5 mg/dl (8.5-10.1); Carbon Dioxide 29 mmol/L (21-32); Chloride 108 mmol/L (98-107); Est GFR (African American) 88.3; Est GFR (Non-African American) 76.2; Glucose 105 mg/dl (70-99); Potassium 4.4 mmol/L (3.5-5.1); Sodium 140 mmol/L (136-145)
--- NOTE | 2019-07-19 08:00 | Anesthesiology Progress Note ---
Date of Service July 19, 2019 Anesthesia Post Procedure Vital Signs Vital Signs: Temp Pulse Pulse Pulse Pulse Resp BP 07/19/19 03:30 37.0 C 56 L 18 122/67 07/18/19 23:22 36.9 C 53 L 18 95/50 L 07/18/19 20:01 37.0 C 72 18 127/73 07/18/19 19:12 36.8 C 61 19 118/62 07/18/19 17:00 72 16 144/78 H 07/18/19 16:50 55 L 07/18/19 16:35 36.5 C 53 L 17 112/60 07/18/19 16:19 36.6 C 53 L 17 114/56 L 07/18/19 16:05 36.5 C 61 15 139/74 07/18/19 15:50 36.5 C 66 16 135/63 07/18/19 15:45 56 L 16 128/64 07/18/19 15:30 52 L 16 126/63 07/18/19 15:20 36.6 C 62 16 128/71 07/18/19 15:10 60 16 152/72 H 07/18/19 15:00 70 16 151/76 H 07/18/19 14:50 68 15 159/70 H 07/18/19 14:43 36.4 C L 67 16 159/85 H 07/18/19 13:06 36.8 C 64 20 130/72 Pulse Ox 07/19/19 03:30 99 07/18/19 23:22 96 07/18/19 20:01 95 07/18/19 19:12 96 07/18/19 17:00 97 07/18/19 16:50 07/18/19 16:35 98 07/18/19 16:19 94 07/18/19 16:05 98 07/18/19 15:50 97 07/18/19 15:45 95 07/18/19 15:30 96 07/18/19 15:20 94 07/18/19 15:10 100 07/18/19 15:00 100 07/18/19 14:50 100 07/18/19 14:43 94 07/18/19 13:06 97 Notes Mental Status: alert / awake / arousable Patient Amnestic to Procedure: Yes Nausea / Vomiting: adequately controlled Pain: adequately controlled Airway Patency, RR, SpO2: stable & adequate BP & HR: stable & adequate Hydration State: stable & adequate Anesthetic Complications: no major complications apparent Notes: pt tried to pull out martinez this morning; complained he was not educated on the martinez catheter; thanh red blood noted in catheter; (RN doing intermittent back flushing of martinez catheter)
--- NOTE | 2019-07-19 10:33 | Urology Consultation ---
Date of Consultation July 19, 2019 Assessment & Plan (1) Gross hematuria: 84yo M POD #1 s/p ex lap for SBO, traumatic martinez manipulation with gross hematuria Likely prostatic trauma with martinez manipulation. Dr. Thorne at bedside to evaluate patient and replace martinez catheter. Diffi cult insertion, required wire stylette for insertion. 20fr straight catheter placed, pt drained 500cc light brown urine. Pt then hand irrigated to clear then left to gravity. Pt tolerated well. Plan to maintain martinez catheter for 2 weeks to allow for adequate bladder rest and recovery to traumatized prostate. Will continue to follow peripherally while inpatient. History of Present Illness Reason for Consultation: martinez trauma, hematuria Requesting Physician: Dr Ho Attending Physician: Sarah Ho MD History of Present Illness 84yo M with hx of Afib on Eliquis, Cardiomyopathy, BPH POD #1 s/p ex lap for SBO with Dr Gutiérrez consulted due to catheter trauma, hematuria. Pt became confused and attempted to pull martinez catheter this AM. Kp red blood expressed immediately. Pt is in no acute distress however the 16fr martinez is not draining well. Nursing unable to irrigate without pain. H/H stable UC&S pending Pt denies n/v/f/c - somewhat poor historian. Last evaluated by our service in [address] Thorne for urgency/frequency. cystoscopy completed at that time, pt found to have kissing lateral lobe and elevated median lobe. Allergies Allergy/AdvReac Type Severity Reaction Status Date / Time oxymetazoline AdvReac Unknown Fainting Verified 07/18/19 02:21 phenylephrine AdvReac Unknown headache, Unverified 06/14/19 10:49 high BP Home Medications Home Medications Medication Instructions Recorded Confirmed Type cetirizine 10 mg tablet 10 mg PO DAILY tab 01/01/19 07/18/19 History docusate sodium 100 mg tablet 250 mg PO BID tab 01/01/19 07/18/19 History esomeprazole magnesium 40 mg 40 mg PO DAILY #90 cap 01/01/19 06/14/19 History capsule,delayed release ferrous sulfate 325 mg (65 mg 325 mg PO BID tab 01/01/19 06/14/19 History iron) tablet isosorbide dinitrate 10 mg tablet 5 mg PO ONCE PRN #90 tab 01/01/19 07/18/19 History multivitamin 1 tab PO DAILY 01/01/19 07/18/19 History nitroglycerin 0.4 mg sublingual 0.4 mg SL Q5M PRN #1 tab 01/01/19 06/14/19 History tablet triamterene 37.5 1 cap PO DAILY #90 cap 01/01/19 07/18/19 History mg-hydrochlorothiazide 25 mg capsule apixaban 2.5 mg tablet 2.5 mg PO BID 01/15/19 07/18/19 History isosorbide mononitrate 120 mg 240 mg PO DAILY #180 tab 04/24/19 07/18/19 Rx tablet,extended release 24 hr atorvastatin 80 mg tablet 80 mg PO DAILY #90 tab 07/16/19 07/18/19 Rx Patient History Medical History Atrial flutter, paroxysmal (Acute) Benign prostatic hyperplasia with urinary obstruction (Acute) CAD in [place] artery (Acute) Edema of both legs (Acute) Esophageal reflux (Acute) Hypercholesterolemia (Acute) Imbalance (Acute) Paroxysmal atrial fibrillation Social History Preferred Language: Egyptian Communication Ability: Effective Director Cloud Transformation Required: No Beliefs That Will Affect Care: None marital status: Current Living Situation: Spouse and Family Other Information That Helps Us Care for You: No Feels Safe at Home: Yes Safety Concerns: Feels Safe At This Time Smoking Status: Never smoker Do You Dip or Chew Tobacco: No ; Second Hand Exposure: No ; Tobacco Cessation Education Requested by Patient: No Hx Alcohol Use: Yes Alcohol type: wine Hx Substance Use: No Review of Systems Constitutional: no fever, no chills, no fatigue and no increased appetite Eyes: no problem reported Ear, Nose, Mouth, Throat: no ear pain and no dizziness Respiratory: no cough and no dyspnea Cardiovascular: no chest pain and no dyspnea Gastrointestinal: no abdominal pain, no nausea and no vomiting distention s/p ex lap as expected Genitourinary: + as per Subjective / HPI Musculoskeletal: no neck pain and no joint pain Integumentary: no acne and no rash Neurologic: no falls and no numbness Psychiatric: no hopelessness Endocrine: no polydipsia and no polyphagia Hematologic / Lymphatic: no coagulopathy and no lymphadenopathy Allergy / Immunological: no lip swelling Physical Exam Constitutional: comfortable; no acute distress, not ill appearing, no altered mental status and not lethargic Eyes: no nystagmus ENMT: Ears: no hearing impairment Neck: trachea midline Respiratory: no respiratory distress, does not use accessory muscles, no cough and no grunting Cardiovascular: Vessels: no JVD Extremities: no edema Chest (Breasts): Chest: normal inspection of chest Gastrointestinal (Abdomen): Inspection/Auscultation: abdomen not distended and no abdominal edema Percussion/Palpation: abdomen soft; abdomen nontender Musculoskeletal: no cyanosis or clubbing, extremities motor strength 5/5 Head/Neck/Chest: normocephalic and head atraumatic Extremities: extremities normal to inspection Skin: no rashes, warm and dry Neurologic: awake; not confused and not obtunded Psychiatric: Orientation: alert and oriented x 3 Eye Contact: good eye contact Affect: no depressed affect Genitourinary: + circumcised; no CVA tenderness, no external lesion, no edema and no penile ecchymosis Lymphatic: no lymphadenopathy and no lymphedema Results & Data Vital Signs (Past 12 Hours) Vital Signs Temp Pulse Pulse Resp BP Pulse Ox 07/19/19 08:25 37.0 C 66 22 132/74 92 07/19/19 03:30 37.0 C 56 L 18 122/67 99 07/18/19 23:22 36.9 C 53 L 18 95/50 L 96 PG Care Time/CCT Total # of Minutes Spent Total Time Spent with Patient: Total time spent is greater than 50% in health education coordinator rdination of care (as documented) at patient's floor/unit and/or counseling patient: Coding Level of Care Code 79594 Office/Outpt Visit, New Diagnoses Gross hematuria R31.0
--- NOTE | 2019-07-19 13:29 | Hospitalist Progress Note ---
Date of Service July 19, 2019 Assessment & Plan (1) SBO (small bowel obstruction): This patient is an 84-year-old male with a past medical history of CAD status post CABG x2, hyperlipidemia, GERD, heart disease, hypertension, PAF, BPH who presents as a transfer from [facility] for management and evaluation of SBO. Small bowel obstruction Patient without a history of small bowel obstructions, or abdominal surgery presented with acute onset of abdominal pain to [facility]. Imaging at their institution was consistent with an SBO, laboratory findings were pertinent for a white count of 14 and a lactate of 2.7. Given nontoxic appearance of the patient, relatively good control of abdominal pain, negative imaging for perforation, negative rebound or guarding, negative signs of acute abdomen, he was transferred here for further evaluation by general surgery -Consult general surgery appreciated-had small bowel follow-through which showed delayed movement of contrast-surgery took him for exploratory laparotomy on 07/18 Findings consistent with multiple bands throughout the small intestine that constricted it and likely contributed to the intestine folding on itself No lysis of adhesions was necessary but the bowel was run and there was no tumor found -Postoperative management as per surgery-improving -NG tube was removed after surgery -He has now advanced to clear liquids diet -Continue maintenance IVF with LR but will decrease to 70 mL's per hour now that he is on clears -Continue morphine and IV Tylenol as needed for pain -He was given 1 dose of cefoxitin (2) Cardiomyopathy: Previously Resolved Cardiomyopathy (Recent Echo 06/08/2019 at [facility] showed LVEF 40%,Global Hypokinesis) -Watch for volume overload with IV fluids -Holding home diuretic Follows with cardiology-Chas Chen (3) Paroxysmal atrial fibrillation: Patient with history of paroxysmal atrial fibrillation/flutter chronically anticoagulated with apixaban. He is not on any AV mari blocking agents as an outpatient Remains in rate controlled atrial fibrillation and flutter here on telemetry -Continue holding Eliquis due to surgery and also now with gross hematuria -Okay to transition off telemetry (4) Benign prostatic hyperplasia with urinary obstruction: Currently with Bonilla catheter in place which had to be replaced due to gross hematuria and urinary retention on 07/19 Appreciate urology management-was a difficult Bonilla placement -Continue to hand irrigate as needed Tamsulosin is mentioned in H&P but I do not see it has been recently prescribed -Consider starting tamsulosin if needed-we will double check with patient if he is on this at home (5) Gross hematuria: As above, started after patient tried to pull his own Bonilla catheter out on the night of 07/18 Urology management appreciated -Continue holding home apixaban -Maintain Bonilla catheter with hand irrigation as needed -Follow CBC (6) CAD in [place] artery: With a history of CABG No ischemic changes on EKG, no chest pains -Holding home apixaban -We will restart home atorvastatin, and continue to hold isosorbide (7) Esophageal reflux: Patient with a history of chronic GERD well-controlled on esomeprazole 40 mg at home. -Continue IV ranitidine 50 mg every 8 hours and convert to p.o. PPI once reliably taking p.o. (8) Hypercholesterolemia: Okay to restart home atorvastatin now that has been advanced to clear liquids diet (9) Atrial flutter, paroxysmal: As above (10) Edema of both legs: No current edema -Holding Dyazide from home (11) DVT prophylaxis: Was on Eliquis, currently SCDs only due to surgery Disposition-stable for transition off PCU to medical surgical floor Admission and Anticipated Discharge Date Admission Date: July 18, 2019 Anticipated date of discharge: 07/21/19 Subjective Patient tried to pull his Bonilla catheter out overnight and now has had gross hematuria with clots and urinary retention. I discussed the case with the urology nurse practitioner today. I also discussed his case with the surgical physicians assistant elementary teacher. From a surgical standpoint, he is doing better, has some pain at incision sites. He has not passed any flatus yet but denies nausea or vomiting. He has now been advanced to a clear liquids diet. He denies chest pain or shortness of breath, otherwise feels well. Telemetry with atrial flutter with rates controlled in the 50s to 60s with some PVCs Review of Systems Review of Systems: All systems reviewed & are unremarkable except as noted in HPI & below Physical Exam Constitutional: + thin; no acute distress Eyes: + anicteric sclerae Neck: trachea midline, no thyromegaly Respiratory: normal respiratory effort, lungs clear to auscultation Cardiovascular: Rate/Rhythm: regular rate and + irregularly irregular Heart Sounds: no murmur Extremities: no edema Chest (Breasts): Chest: + abnormal inspection of chest (Midline sternotomy scar visible) Gastrointestinal (Abdomen): Inspection/Auscultation: + hypoactive bowel s ounds; + abdomen abnormal to inspection (Dressing in the lower midline is clean dry and intact) and abdomen not distended Percussion/Palpation: + abdomen tender (Over incision without guarding or rebound) and abdomen soft Musculoskeletal: Extremities: extremities normal to inspection; no cyanosis and no clubbing Skin: no rashes, warm and dry Neurologic: moves all extremities and awake; no focal motor deficits Psychiatric: Orientation: alert, oriented to person, oriented to place and cooperative Eye Contact: good eye contact Speech: normal rate/r hythm/volume of speech Affect: euthymic affect Genitourinary: no testicular masses, no penis abnormality (With Bonilla catheter in place draining bloody urine) Lymphatic: no lymphedema Results & Data ([facility]) Vital Signs (Past 12 Hours) Vital Signs Temp Pulse Pulse Resp BP Pulse Ox 07/19/19 11:35 36.9 C 91 H 19 139/92 95 07/19/19 08:25 37.0 C 66 22 132/74 92 07/19/19 03:30 37.0 C 56 L 18 122/67 99 Laboratory Results Labs reviewed PG Care Time/CCT Total # of Minutes Spent Total Time Spent with Patient: Total time spent is greater than 50% in coordination of care (as documented) at patient's floor/unit and/or counseling patient: Coding Level of Care Code 16655 Subseq Hosp Care Lvl 3 Diagnoses SBO (small bowel obstruction) K56.609 Cardiomyopathy I42.9 Paroxysmal atrial fibrillation I48.0 Benign prostatic hyperplasia with urinary obstruction N40.1; N13.8 Gross hematuria R31.0 CAD in [place] artery I25.10 Esophageal reflux K21.9 Hypercholesterolemia E78.00 Atrial flutter, paroxysmal I48.92 Edema of both legs R60.0 DVT prophylaxis Z29.9
[2019-07-20] MEDS: ACETAMINOPHEN 1,000 MG/100 ML VIAL IV SCH ×3 (05:47→21:25)
[2019-07-20 05:55] LABS: Basophils # (auto) 0.02 K/uL (0-0.2); Basophils % (auto) 0.2 %; Eosinophils # (auto) 0.04 K/uL (0-0.5); Eosinophils % (auto) 0.4 %; Hematocrit (blood only) 37.1 % (42-52); Hemoglobin 11.9 g/dL (14.0-18.0); Immature Granulocytes # (auto) 0.03 K/uL (0.00-0.02); Immature Granulocytes % (auto) 0.3 %; Lymphocytes # (auto) 0.37 K/uL (1.2-3.4); Lymphocytes % (auto) 3.8 %; Mean Corpuscular Hemoglobin 32.2 pg (25-34); Mean Corpuscular Hgb Conc 32.1 g/dL (32-36); Mean Corpuscular Volume 100.5 fL (80-100); Mean Platelet Volume 11.7 fL (7.4-10.4); Monocytes % (auto) 8.3 %; Neutrophils # (auto) 8.43 K/uL (1.4-6.5); Platelet Count 118 K/uL (130-400); RDW Coefficient of Variation 16.2 % (11.5-14.5); RDW Standard Deviation 59.7 fL (36.4-46.3); Red Blood Count 3.69 M/uL (4.7-6.1); White Blood Count 9.69 K/uL (4.8-10.8)
[2019-07-20 06:03] LABS: BUN Creatinine Ratio 16.7 (10-20); Blood Urea Nitrogen 15 mg/dl (7-18); Calcium 8.3 mg/dl (8.5-10.1); Carbon Dioxide 30 mmol/L (21-32); Chloride 106 mmol/L (98-107); Est GFR (African American) 89.5; Est GFR (Non-African American) 77.2; Glucose 101 mg/dl (70-99); Potassium 4.4 mmol/L (3.5-5.1); Sodium 139 mmol/L (136-145)
--- NOTE | 2019-07-20 07:33 | Surgery Progress Note ---
Date of Service July 20, 2019 Assessment & Plan (1) SBO (small bowel obstruction): POD 2 ex lap awaiting return bowel function OOB, PT/OT UO adequate Subjective no nausea, no flatus Physical Exam Gastrointestinal (Abdomen): Inspection/Auscultation: + abdomen distended and + abdominal surgical incision (clean, dry) Percussion/Palpation: abdomen soft Results & Data Vital Signs (Past 12 Hours) Vital Signs Temp Pulse Resp BP Pulse Ox 07/19/19 23:30 36.7 C 54 L 18 111/69 92 PG Care Time/CCT Total # of Minutes Spent Total Time Spent with Patient: Total time spent is greater than 50% in coordination of care (as documented) at patient's floor/unit and/or counseling patient: Coding Level of Care Code None Diagnoses SBO (small bowel obstruction) K56.609
--- NOTE | 2019-07-20 07:50 | Urology Progress Note ---
Date of Service July 20, 2019 Assessment & Plan (1) Gross hematuria: 84yo M POD #2 s/p ex lap for SBO, difficult martinez insertion with gross hematuria Tolerating catheter well, now draining adequate amounts of clear yellow urine. Expect mild bleeding from penis/catheter insertion site for the next few days, clean PRN. Proper martinez care and importance of not manipulating reviewed with pt, he appears to be mentating much better and receptive to instruction. Plan to maintain martinez catheter for 2 weeks to allow for adequate bladder rest and recovery to traumatized prostate. Will arrange outpatient TOV and followup. Thank you for allowing us to participate in the acute care of Mr. Green. Please reconsult us with additional questions, concerns or changes in patient status. Subjective Pt transferred to med/surg Alert and oriented this AM, denies any pain. Tolerating catheter well, denies any manipulation or pulling on catheter. He feels he is ready to ambulate. Tolerating clears without issue. Review of Systems Review of Systems: All systems reviewed & are unremarkable except as noted in HPI & below Physical Exam Physical Exam: A&Ox3 Resp rate reg abd with incisions, abd pads intact - not assessed no LE edema martinez draining clear yellow very mild bleeding around penis at catheter insertion site, Results & Data Vital Signs (Past 12 Hours) Vital Signs Temp Pulse Resp BP Pulse Ox 07/20/19 07:20 37.0 C 73 18 126/76 90 07/19/19 23:30 36.7 C 54 L 18 111/69 92 PG Care Time/CCT Total # of Minutes Spent Total Time Spent with Patient: Total time spent is greater than 50% in coordination of care (as documented) at patient's floor/unit and/or counseling patient: Coding Level of Care Code 85824 Subseq Hosp Care Lvl 2 Diagnoses Gross hematuria R31.0
[2019-07-20] MEDS: ATORVASTATIN 40 MG TAB PO SCH (08:46)
[2019-07-20] MEDS: LACTATED RINGER'S 1,000 ML IV SCH (11:57)
--- NOTE | 2019-07-20 17:41 | Hospitalist Progress Note ---
Date of Service July 20, 2019 Assessment & Plan (1) SBO (small bowel obstruction): This patient is an 84-year-old male with a past medical history of CAD status post CABG x2, hyperlipidemia, GERD, heart disease, hypertension, PAF, BPH who presents as a transfer from [facility] for management and evaluation of SBO. Patient without a history of small bowel obstructions, or abdominal surgery presented with acute onset of abdominal pain to [facility]. Imaging at their institution was consistent with an SBO, laboratory findings were pertinent for a white count of 14 and a lactate of 2.7. Given nontoxic appearance of the patient, relatively good control of abdominal pain, negative imaging for perforation, negative rebound or guarding, negative signs of acute abdomen, he was transferred here for further evaluation by general surgery -Consult general surgery appreciated-had small bowel follow-through which showed delayed movement of contrast-surgery took him for exploratory laparotomy on 07/18 Findings consistent with multiple bands throughout the small intestine that constricted it and likely contributed to the intestine folding on itself No lysis of adhesions was necessary but the bowel was run and there was no tumor found -Postoperative management as per surgery-improving, now passing flatus, tolerating clears diet -NG tube was removed after surgery -advance diet when Surgery says so -Continue maintenance IVF with LR at 70 mL's per hour until taking more po -Continue morphine and IV Tylenol as needed for pain -He was given 1 dose of cefoxitin (2) Acute blood loss anemia: Hgb dropped to 11.9 from 13.3 due to gross hematuria Hemodynamically stable Hematuria now pretty much resolved -follow CBC in AM (3) Cardiomyopathy: Previously Resolved Cardiomyopathy (Recent Echo 06/08/2019 at [facility] showed LVEF 40%,Global Hypokinesis) -Watch for volume overload with IV fluids-still appears euvolemic -Holding home diuretic Follows with cardiology-Chas Chen (4) Paroxysmal atrial fibrillation: Patient with history of paroxysmal atrial fibrillation/flutter chronically anticoagulated with apixaban. He is not on any AV mari blocking agents as an outpatient Remains in rate controlled atrial fibrillation and flutter here on telemetry, now since moved to medical floor -Continue holding Eliquis due to surgery and also with gross hematuria (5) Benign prostatic hyperplasia with urinary obstruction: Currently with Bonilla catheter in place which had to be replaced due to gross hematuria and urinary retention on 07/19 Thought to be from Bonilla trauma dn lodged in prostate after patent tried to pull it out on his own Appreciate urology management-was a difficult Bonilla placement Now hematuria resolved, draining well -Continue to hand irrigate as needed Tamsulosin is mentioned in H&P but I do not see it has been recently prescribed -Consider starting tamsulosin if needed-we will double check with patient if he is on this at home (6) Gross hematuria: As above, started after patient tried to pull his own Bonilla catheter out on the night of 07/18 Urology management appreciated Now resolving -Continue holding home apixaban -Maintain Bonilla catheter with hand irrigation as needed -Follow CBC (7) CAD in [place] artery: With a history of CABG No ischemic changes on EKG, no chest pains -Holding home apixaban -continue atorvastatin, and continue to hold isosorbide (8) Esophageal reflux: Patient with a history of chronic GERD well-controlled on esomeprazole 40 mg at home. -dc IV Zantac and convert to p.o. PPI for tomorrow (9) Hypercholesterolemia: -restarted home atorvastatin now that has been advanced to clear liquids diet (10) Atrial flutter, paroxysmal: As above (11) Edema of both legs: No current edema -Holding Dyazide from home (12) Thrombocytopenia: plts mildly low today at 118 after clots with gross hematuria, comsumptive -follow CBC (13) DVT prophylaxis: Was on Eliquis, currently SCDs only due to surgery and hematuria Disposition-continued stay on medical surgical floor, awaiting advancement of diet and to ensure resolution of gross hematuria He denies any needs at home, plan will be for dc to home eventually Admission and Anticipated Discharge Date Admission Date: July 18, 2019 Anticipated date of discharge: 07/22/19 Subjective Pt feeling well today. Is tolerating clears and passed some flatus this afternoon. He feels like he could have a BM soon. Denies chest pain or SOB Has mild pain in abdomen at surgical site. No nausea or vomiting He ambulated the halls with the RN today Review of Systems Review of Systems: All systems reviewed & are unremarkable except as noted in HPI & below Physical Exam Constitutional: + thin; no acute distress Eyes: + anicteric sclerae Neck: trachea midline, no thyromegaly Respiratory: normal respiratory effort, lungs clear to auscultation Cardiovascular: Rate/Rhythm: regular rate and + irregularly irregular Heart Sounds: no murmur Extremities: no edema Chest (Breasts): Chest: + abnormal inspection of chest (Midline sternotomy scar visible) Gastrointestinal (Abdomen): Inspection/Auscultation: + abdomen distended (mild) and normal bowel sounds; + abdomen abnormal to inspection (incision lower midline is clean dry and intact, shilpi in place ) Percussion/Palpation: + abdomen tender (Over incision without guarding or rebound) and abdomen soft Musculoskeletal: Extremities: extremities normal to inspection; no cyanosis and no clubbing Skin: no rashes, warm and dry Neurologic: moves all extremities and awake; no focal motor deficits Psychiatric: Orientation: alert, oriented to person, oriented to place and cooperative Eye Contact: good eye contact Speech: normal rate/rhythm/volume of speech Affect: euthymic affect Genitourinary: no testicular masses, no penis abnormality (With Bonilla catheter in place draining faintly blood-tinged urine) Lymphatic: no lymphedema Results & Data ([facility]) Vital Signs (Past 12 Hours) Vital Signs Temp Pulse Resp BP Pulse Ox 07/20/19 15:13 37.1 C 55 L 18 114/68 93 07/20/19 07:20 37.0 C 73 18 126/76 90 Laboratory Results 07/20/19 07/20/19 Range/Units 05:21 05:21 WBC 9.69 (4.8-10.8) K/uL RBC 3.69 L (4.7-6.1) M/uL Hgb 11.9 L (14.0-18.0) g/dL Hct 37.1 L (42-52) % MCV 100.5 H (80-100) fL MCH 32.2 (25-34) pg MCHC 32.1 (32-36) g/dL RDW Std Deviation 59.7 H (36.4-46.3) fL RDW Coeff of Jared 16.2 H (11.5-14.5) % Plt Count 118 L (130-400) K/uL MPV 11.7 H (7.4-10.4) fL Immature Gran % (Auto) 0.3 % Neut % (Auto) 87.0 % Lymph % (Auto) 3.8 % Dickson % (Auto) 8.3 % Eos % (Auto) 0.4 % Baso % (Auto) 0.2 % Immature Gran # (Auto) 0.03 H (0.00-0.02) K/uL Neut # (Auto) 8.43 H (1.4-6.5) K/uL Lymph # (Auto) 0.37 L (1.2-3.4) K/uL Dickson # (Auto) 0.80 H (0.11-0.59) K/uL Eos # (Auto) 0.04 (0-0.5) K/uL Baso # (Auto) 0.02 (0-0.2) K/uL Sodium 139 (136-145) mmol/L Potassium 4.4 (3.5-5.1) mmol/L Chloride 106 (98-107) mmol/L Carbon Dioxide 30 (21-32) mmol/L Anion Gap 3.0 (3-11) BUN 15 (7-18) mg/dl Creatinine 0.92 (0.6-1.4) mg/dl Est Cr Clr Drug Dosing Not Reportable Est GFR ( Amer) 89.5 Est GFR (Non-Af Amer) 77.2 BUN/Creatinine Ratio 16.7 (10-20) Glucose 101 H (70-99) mg/dl Calcium 8.3 L (8.5-10.1) mg/dl PG Care Time/CCT Total # of Minutes Spent Total Time Spent with Patient: Total time spent is greater than 50% in coordination of care (as documented) at patient's floor/unit and/or counseling patient: Coding Level of Care Code 74899 Subseq Hosp Care Lvl 2 Diagnoses SBO (small bowel obstruction) K56.609 Acute blood loss anemia D62 Cardiomyopathy I42.9 Paroxysmal atrial fibrillation I48.0 Benign prostatic hyperplasia with urinary obstruction N40.1; N13.8 Gross hematuria R31.0 CAD in [place] artery I25.10 Esophageal reflux K21.9 Hypercholesterolemia E78.00 Atrial flutter, paroxysmal I48.92 Edema of both legs R60.0 Thrombocytopenia D69.6 DVT prophylaxis Z29.9
[2019-07-21] MEDS: LACTATED RINGER'S 1,000 ML IV SCH ×2 (03:07→16:39)
[2019-07-21] MEDS: ACETAMINOPHEN 1,000 MG/100 ML VIAL IV SCH ×2 (05:53→13:26)
[2019-07-21 06:54] LABS: Basophils # (auto) 0.01 K/uL (0-0.2); Basophils % (auto) 0.1 %; Eosinophils # (auto) 0.07 K/uL (0-0.5); Hematocrit (blood only) 35.5 % (42-52); Hemoglobin 11.3 g/dL (14.0-18.0); Immature Granulocytes # (auto) 0.01 K/uL (0.00-0.02); Immature Granulocytes % (auto) 0.1 %; Lymphocytes # (auto) 0.43 K/uL (1.2-3.4); Lymphocytes % (auto) 5.9 %; Mean Corpuscular Hemoglobin 31.7 pg (25-34); Mean Corpuscular Hgb Conc 31.8 g/dL (32-36); Mean Corpuscular Volume 99.7 fL (80-100); Mean Platelet Volume 11.3 fL (7.4-10.4); Monocytes # (auto) 0.67 K/uL (0.11-0.59); Monocytes % (auto) 9.3 %; Neutrophils # (auto) 6.04 K/uL (1.4-6.5); Neutrophils % (auto) 83.6 %; Platelet Count 129 K/uL (130-400); RDW Coefficient of Variation 15.8 % (11.5-14.5); RDW Standard Deviation 57.7 fL (36.4-46.3); Red Blood Count 3.56 M/uL (4.7-6.1); White Blood Count 7.23 K/uL (4.8-10.8)
[2019-07-21 07:25] LABS: BUN Creatinine Ratio 15.8 (10-20); Blood Urea Nitrogen 13 mg/dl (7-18); Carbon Dioxide 30 mmol/L (21-32); Chloride 108 mmol/L (98-107); Est GFR (African American) 96.4; Est GFR (Non-African American) 83.2; Glucose 94 mg/dl (70-99); Potassium 3.9 mmol/L (3.5-5.1); Sodium 140 mmol/L (136-145)
--- NOTE | 2019-07-21 08:40 | Surgery Progress Note ---
Date of Service July 21, 2019 Assessment & Plan (1) SBO (small bowel obstruction): having BMs advance to full liquids ambulate Subjective doing well three small BMs passing flatus Review of Systems Constitutional: no fever and no chills Respiratory: no cough and no dyspnea Cardiovascular: no chest pain Gastrointestinal: + abdominal pain (mild) and + change in stools (BM); no nausea and no vomiting Genitourinary: + hematuria (martinez in place, hematuria) Physical Exam Constitutional: WD/WN, vitals as above Neck: trachea midline Respiratory: normal respiratory effort, lungs clear to auscultation Cardiovascular: RRR, no murmur, no edema Gastrointestinal (Abdomen): Inspection/Auscultation: abdomen normal to inspection and normal bowel sounds; abdomen not distended Percussion/Palpation: + abdomen tender (mild); no guarding incision clean and dry Skin: no rashes, warm and dry Results & Data Vital Signs (Past 12 Hours) Vital Signs Temp Pulse Pulse Resp BP BP Pulse Ox 07/21/19 08:00 36.9 C 69 20 143/81 H 90 07/20/19 23:17 36.7 C 71 16 145/76 H 91
[2019-07-21] MEDS: PANTOprazole 40 MG TAB PO SCH (08:57)
[2019-07-21] MEDS: ATORVASTATIN 40 MG TAB PO SCH (08:57)
--- NOTE | 2019-07-21 16:10 | Hospitalist Progress Note ---
Date of Service July 21, 2019 Assessment & Plan (1) SBO (small bowel obstruction): This patient is an 84-year-old male with a past medical history of CAD status post CABG x2, hyperlipidemia, GERD, heart disease, hypertension, PAF, BPH who presents as a transfer from [facility] [address] for management and evaluation of SBO. Patient without a history of SBOs, or abdominal surgery presented with acute onset of abdominal pain to [facility]. Imaging at their institution was consistent with an SBO, laboratory findings were pertinent for a white count of 14 and a lactate of 2.7. He was transferred here for further evaluation by general surgery -Consult general surgery appreciated-had small bowel follow-through which showed delayed movement of contrast-surgery took him for exploratory laparotomy on 07/18 Findings consistent with multiple bands/webs throughout the small intestine that constricted it and likely contributed to the intestine folding on itself No lysis of adhesions was necessary but the bowel was run and there was no tumor found -Postoperative management as per surgery-improving, now passing flatus and BMs x 3 on ; tolerating full liquids diet -NG tube was removed after surgery -advance diet when Surgery says so -can discontinue maintenance IVF now -Continue morphine and IV Tylenol as needed for pain -will need outpt Surgery f/u after discharge (2) Acute blood loss anemia: Hgb dropped to 11.3 from 13.3 due to gross hematuria Hemodynamically stable Hematuria now pretty much resolved -follow CBC in AM (3) Cardiomyopathy: Previously Resolved Cardiomyopathy (Recent Echo 06/08/2019 at [facility] showed LVEF 40%,Global Hypokinesis) -Watch for volume overload with IV fluids-still appears euvolemic -continue holding home diuretic Follows with cardiology-Chas Chen (4) Paroxysmal atrial fibrillation: Patient with history of paroxysmal atrial fibrillation/flutter chronically anticoagulated with apixaban. He is not on any AV mari blocking agents as an outpatient Remained in rate controlled atrial fibrillation and flutter here on telemetry, now since moved to medical floor and sounds irregular on exam -Continue holding Eliquis due to surgery and also with gross hematuria--> would restart Eliquis upon discharge with close monitoring for return of hematuria (5) Benign prostatic hyperplasia with urinary obstruction: Currently with Bonilla catheter in place which had to be replaced due to gross hematuria and urinary retention on 2/27 Thought to be from Bonilla trauma dn lodged in prostate after patent tried to pull it out on his own Appreciate urology management-was a difficult Bonilla placement Now hematuria resolved, draining well -Continue to hand irrigate as needed (6) Gross hematuria: As above, started after patient tried to pull his own Bonilla catheter out on the night of 07/18 Urology management appreciated Now resolved -Continue holding home apixaban but can restart if hematuria remains resolved- possibly restart Eliquis tomorrow -Maintain Bonilla catheter with hand irrigation as needed -Follow CBC (7) CAD in [place] artery: With a history of CABG No ischemic changes on EKG, no chest pains -Holding home apixaban -continue atorvastatin, and continue to hold isosorbide (8) Esophageal reflux: Patient with a history of chronic GERD well-controlled on esomeprazole 40 mg at home. -continue p.o. PPI once daily (9) Hypercholesterolemia: -continue home atorvastatin (10) Atrial flutter, paroxysmal: As above (11) Edema of both legs: No current edema -Holding Dyazide from home (12) Thrombocytopenia: plts mildly low today at 129 after clots with gross hematuria, consumptive -follow CBC (13) DVT prophylaxis: Was on Eliquis, currently SCDs only due to surgery and hematuria Restart Eliquis Tuesday if hematuria remains resolved Disposition-continued stay on medical surgical floor, awaiting advancement of diet and to ensure resolution of gross hematuria He denies any needs at home, plan will be for dc to home when medically stable, perhaps in 1-2 days Admission and Anticipated Discharge Date Admission Date: July 18, 2019 Anticipated date of discharge: 07/22/19 Subjective Pt feeling well, had 3 small BMs and passing flatus. He is tolerating a full liquids diet since being advanced to such this AM. Denies chest pain or SOB, no abd pain. His hematuria has cleared up today. He has questions about why the Bonilla catheter has to stay in and I explained this all to him and included a picture diagram of the anatomy. Review of Systems Review of Systems: All systems reviewed & are unremarkable except as noted in HPI & below Physical Exam Constitutional: + thin; no acute distress Eyes: + anicteric sclerae Neck: trachea midline, no thyromegaly Respiratory: normal respiratory effort, lungs clear to auscultation Cardiovascular: Rate/Rhythm: regular rate and + irregularly irregular Heart Sounds: no murmur Extremities: no edema Chest (Breasts): Chest: + abnormal inspection of chest (Midline sternotomy sca r visible) Gastrointestinal (Abdomen): Inspection/Auscultation: + abdomen distended (mild) and normal bowel sounds; + abdomen abnormal to inspection (incision lower midline is clean dry and intact, shilpi in place ) Percussion/Palpation: + abdomen tender (Over incision without guarding or rebound) and abdomen soft Musculoskeletal: Extremities: extremities normal to inspection; no cyanosis and no clubbing Skin: no rashes, warm and dry Neurologic: moves all extremities and awake; no focal motor deficits Psychiatric: Orientation: alert, oriented to person, oriented to place and cooperative Eye Contact: good eye contact Speech: normal rate/rhythm/volume of speech Affect: euthymic affect Genitourinary: no testicular masses, no penis abnormality (With Bonilla catheter in place draining clear yellow urine) Lymphatic: no lymphedema Results & Data ([facility]) Vital Signs (Past 12 Hours) Vital Signs Temp Pulse Pulse Resp BP Pulse Ox 07/21/19 14:55 36.7 C 62 18 129/74 98 07/21/19 08:00 36.9 C 69 20 143/81 H 90 Laboratory Results 07/21/19 07/21/19 Range/Units 06:22 06:22 WBC 7.23 (4.8-10.8) K/uL RBC 3.56 L (4.7-6.1) M/uL Hgb 11.3 L (14.0-18.0) g/dL Hct 35.5 L (42-52) % MCV 99.7 (80-100) fL MCH 31.7 (25-34) pg MCHC 31.8 L (32-36) g/dL RDW Std Deviation 57.7 H (36.4-46.3) fL RDW Coeff of Jared 15.8 H (11.5-14.5) % Plt Count 129 L (130-400) K/uL MPV 11.3 H (7.4-10.4) fL Immature Gran % (Auto) 0.1 % Neut % (Auto) 83.6 % Lymph % (Auto) 5.9 % [place] % (Auto) 9.3 % Eos % (Auto) 1.0 % Baso % (Auto) 0.1 % Immature Gran # (Auto) 0.01 (0.00-0.02) K/uL Neut # (Auto) 6.04 (1.4-6.5) K/uL Lymph # (Auto) 0.43 L (1.2-3.4) K/uL [place] # (Auto) 0.67 H (0.11-0.59) K/uL Eos # (Auto) 0.07 (0-0.5) K/uL Baso # (Auto) 0.01 (0-0.2) K/uL Sodium 140 (136-145) mmol/L Potassium 3.9 (3.5-5.1) mmol/L Chloride 108 H (98-107) mmol/L Carbon Dioxide 30 (21-32) mmol/L Anion Gap 2.0 L (3-11) BUN 13 (7-18) mg/dl Creatinine 0.80 (0.6-1.4) mg/dl Est Cr Clr Drug Dosing Not Reportable Est GFR ( Amer) 96.4 Est GFR (Non-Af Amer) 83.2 BUN/Creatinine Ratio 15.8 (10-20) Glucose 94 (70-99) mg/dl Calcium 8.0 L (8.5-10.1) mg/dl PG Care Time/CCT Total # of Minutes Spent Total Time Spent with Patient: Total time spent is greater than 50% in coordination of care (as documented) at patient's floor/unit and/or counseling patient: Coding Level of Care Code 93156 Subseq Hosp Care Lvl 2 Diagnoses SBO (small bowel obstruction) K56.609 Acute blood loss anemia D62 Cardiomyopathy I42.9 Paroxysmal atrial fibrillation I48.0 Benign prostatic hyperplasia with urinary obstruction N40.1; N13.8 Gross hematuria R31.0 CAD in [place] artery I25.10 Esophageal reflux K21.9 Hypercholesterolemia E78.00 Atrial flutter, paroxysmal I48.92 Edema of both legs R60.0 Thrombocytopenia D69.6 DVT prophylaxis Z29.9
[2019-07-22] MEDS ORDERED: ACETAMINOPHEN 325 MG TAB PO PRN (01:26)
[2019-07-22 05:26] LABS: Basophils # (auto) 0.02 K/uL (0-0.2); Basophils % (auto) 0.3 %; Eosinophils # (auto) 0.11 K/uL (0-0.5); Eosinophils % (auto) 1.6 %; Hematocrit (blood only) 38.2 % (42-52); Hemoglobin 12.6 g/dL (14.0-18.0); Immature Granulocytes # (auto) 0.01 K/uL (0.00-0.02); Immature Granulocytes % (auto) 0.1 %; Lymphocytes # (auto) 0.54 K/uL (1.2-3.4); Lymphocytes % (auto) 7.6 %; Mean Corpuscular Hemoglobin 32.2 pg (25-34); Mean Corpuscular Volume 97.7 fL (80-100); Mean Platelet Volume 11.1 fL (7.4-10.4); Monocytes # (auto) 0.75 K/uL (0.11-0.59); Monocytes % (auto) 10.6 %; Neutrophils # (auto) 5.64 K/uL (1.4-6.5); Neutrophils % (auto) 79.8 %; Platelet Count 165 K/uL (130-400); RDW Coefficient of Variation 15.6 % (11.5-14.5); RDW Standard Deviation 56.3 fL (36.4-46.3); Red Blood Count 3.91 M/uL (4.7-6.1); White Blood Count 7.07 K/uL (4.8-10.8)
[2019-07-22 05:54] LABS: BUN Creatinine Ratio 17.5 (10-20); Blood Urea Nitrogen 14 mg/dl (7-18); Calcium 8.3 mg/dl (8.5-10.1); Carbon Dioxide 27 mmol/L (21-32); Chloride 109 mmol/L (98-107); Est GFR (African American) 96.9; Est GFR (Non-African American) 83.6; Glucose 100 mg/dl (70-99); Sodium 140 mmol/L (136-145)
[2019-07-22] MEDS: PANTOprazole 40 MG TAB PO SCH (08:42)
[2019-07-22] MEDS: ATORVASTATIN 40 MG TAB PO SCH (08:42)
--- NOTE | 2019-07-22 08:42 | Hospitalist Progress Note ---
Date of Service July 22, 2019 Assessment & Plan (1) SBO (small bowel obstruction): This patient is an 84-year-old male with a past medical history of CAD status post CABG x2, hyperlipidemia, GERD, heart disease, hypertension, PAF, BPH who presents as a transfer from [facility] [address] for management and evaluation of SBO. Patient without a history of SBOs, or abdominal surgery presented with acute onset of abdominal pain to [facility]. Imaging at their institution was consistent with an SBO, laboratory findings were pertinent for a white count of 14 and a lactate of 2.7. He was transferred here for further evaluation by general surgery -Consult general surgery appreciated-had small bowel follow-through which showed delayed movement of contrast-surgery took him for exploratory laparotomy on 07/18 Findings consistent with multiple bands/webs throughout the small intestine that constricted it and likely contributed to the intestine folding on itself No lysis of adhesions was necessary but the bowel was run and there was no tumor found * Postoperative management as per surgery-improving. passing flatus, BM * NG tube was removed after surgery * Tolerated full liquid diet * Advanced diet for dinner 07/21 * Continue morphine, IV Tylenol as needed for pain * Possible discharge Tuesday if stable and cleared by surgical team -- will need outpatient follow up at discharge with surgery (2) Acute blood loss anemia: * Hgb dropped to 11.3 from 13.3 due to gross hematuria. * Hemodynamically stable. H/h improved to 12.6/38.2. IVF d/c'd evening of * Hematuria now pretty much resolved, although still present in current martinez bag (will continue to hold eliquis today, possible resume Tuesday) * Follow CBC in AM (3) Cardiomyopathy: * Previously Resolved Cardiomyopathy (Recent Echo 06/08/2019 at [facility] showed LVEF 40%,Global Hypokinesis). Follows with [facility] * Watch for volume overload with IV fluids--> still appears euvolemic on exam * Continue to hold home Dyzazide * Continue to monitor (4) Paroxysmal atrial fibrillation: * Patient with history of paroxysmal atrial fibrillation/flutter chronically anticoagulated with apixaban. He is not on any AV mari blocking agents as an outpatient * Remained in rate controlled atrial fibrillation and flutter here on telemetry, now since moved to medical floor and sounds irregular on exam * Continue holding Eliquis due to surgery and also with hematuria--> would restart Eliquis upon discharge with close monitoring for return of hematuria (5) Benign prostatic hyperplasia with urinary obstruction: * Currently with Martinez catheter in place which had to be replaced due to gross hematuria and urinary retention on 07/19 * Thought to be from Martinez trauma dn lodged in prostate after patent tried to pull it out on his own * Appreciate urology management-was a difficult Martinez placement * Now hematuria resolved, draining well * Continue to hand irrigate as needed (6) Gross hematuria: * As above, started after patient tried to pull his own Martinez catheter out on the night of 07/18 * Urology management appreciated Now resolved, however still with blood present in martinez bag --> possible restart eliquis this evening vs AM Tuesday * H/h improved -- 12.6/38.2 * Follow CBC (7) CAD in [place] artery: * With a history of CABG * No ischemic changes on EKG, no chest pains * Holding home apixaban as above * Continue atorvastatin, and continue to hold isosorbide (8) Esophageal reflux: * Patient with a history of chronic GERD well-controlled on esomeprazole 40 mg at home. * Continue protonix 40mg PO daily (9) Hypercholesterolemia: * Continue home atorvastatin 80mg (10) Atrial flutter, paroxysmal: * As above (11) Edema of both legs: * No current edema * Holding Dyazide from home (12) Thrombocytopenia: * Plts mildly low at 118 on 07/20. Currently up to 165 * Consumptive, given gross hematuria (13) DVT prophylaxis: * Was on Eliquis, currently SCDs only due to surgery and hematuria * Restart Eliquis this evening vs Tuesday AM if hematuria remains resolved Disposition-continued stay on medical surgical floor, diet advanced for dinner. Monitor hematuria He denies any needs at home, plan will be for dc to home when medically stable, perhaps in 1-2 days Admission and Anticipated Discharge Date Admission Date: July 18, 2019 Anticipated date of discharge: 07/22/19 Subjective Patient feeling well today. Minimal abdominal pain. Tolerated breakfast without difficulty. Continuing to pass gas and have BM. Discussed advancing diet and possible discharge home in AM pending how he tolerates advancement. All questions/concerns addressed. Patient to discharge home with martinez. Demonstrates understanding. Review of Systems Review of Systems: All systems reviewed & are unremarkable except as noted in HPI & below Physical Exam Constitutional: + thin and cooperative; no acute distress Eyes: + anicteric sclerae and PERRL Neck: trachea midline, no thyromegaly Respiratory: normal respiratory effort, lungs clear to auscultation Cardiovascular: Rate/Rhythm: regular rate and + irregularly irregular Heart Sounds: no murmur Extremities: no edema Gastrointestinal (Abdomen): Inspection/Auscultation: + abdomen distended and normal bowel sounds Percussion/Palpation: + abdomen tender (over incision); no guarding and no hepatosplenomegaly no rebound surgical incision lower midline. shilpi intact. no evidence of drainage Musculoskeletal: no cyanosis or clubbing, extremities motor strength 5/5 Skin: warm , dry sternotomy scar present Neurologic: PERRL, EOMI, accommodation nl, no face palsy, no dysarthria Psychiatric: A+Ox3, euthymic affect Genitourinary: martinez present with faint pink tinge to urine Lymphatic: no cervical or axillary lymphadenopathy Results & Data ([facility]) Vital Signs (Past 12 Hours) Vital Signs Temp Pulse Resp BP Pulse Ox 07/22/19 07:21 36.7 C 68 16 152/80 H 95 07/21/19 22:56 36.7 C 63 16 147/78 H 96 Laboratory Results 07/22/19 07/22/19 Range/Units 05:04 05:04 WBC 7.07 (4.8-10.8) K/uL RBC 3.91 L (4.7-6.1) M/uL Hgb 12.6 L (14.0-18.0) g/dL Hct 38.2 L (42-52) % MCV 97.7 (80-100) fL MCH 32.2 (25-34) pg MCHC 33.0 (32-36) g/dL RDW Std Deviation 56.3 H (36.4-46.3) fL RDW Coeff of Jared 15.6 H (11.5-14.5) % Plt Count 165 (130-400) K/uL MPV 11.1 H (7.4-10.4) fL Immature Gran % (Auto) 0.1 % Neut % (Auto) 79.8 % Lymph % (Auto) 7.6 % [place] % (Auto) 10.6 % Eos % (Auto) 1.6 % Baso % (Auto) 0.3 % Immature Gran # (Auto) 0.01 (0.00-0.02) K/uL Neut # (Auto) 5.64 (1.4-6.5) K/uL Lymph # (Auto) 0.54 L (1.2-3.4) K/uL [place] # (Auto) 0.75 H (0.11-0.59) K/uL Eos # (Auto) 0.11 (0-0.5) K/uL Baso # (Auto) 0.02 (0-0.2) K/uL Sodium 140 (136-145) mmol/L Potassium 4.0 (3.5-5.1) mmol/L Chloride 109 H (98-107) mmol/L Carbon Dioxide 27 (21-32) mmol/L Anion Gap 4.0 (3-11) BUN 14 (7-18) mg/dl Creatinine 0.79 (0.6-1.4) mg/dl Est Cr Clr Drug Dosing Not Reportable Est GFR ( Amer) 96.9 Est GFR (Non-Af Amer) 83.6 BUN/Creatinine Ratio 17.5 (10-20) Glucose 100 H (70-99) mg/dl Calcium 8.3 L (8.5-10.1) mg/dl Magnesium 2.0 (1.8-2.4) mg/dl PG Care Time/CCT Total # of Minutes Spent Total Time Spent with Patient: Total time spent is greater than 50% in coordination of care (as documented) at patient's floor/unit and/or counseling patient: Coding Level of Care Code 26432 Subseq Hosp Care Lvl 2 Diagnoses SBO (small bowel obstruction) K56.609 Acute blood loss anemia D62 Cardiomyopathy I42.9 Paroxysmal atrial fibrillation I48.0 Benign prostatic hyperplasia with urinary obstruction N40.1; N13.8 Gross hematuria R31.0 CAD in [place] artery I25.10 Esophageal reflux K21.9 Hypercholesterolemia E78.00 Atrial flutter, paroxysmal I48.92 Edema of both legs R60.0 Thrombocytopenia D69.6 DVT prophylaxis Z29.9
--- NOTE | 2019-07-22 10:46 | Surgery Progress Note ---
Date of Service July 22, 2019 Assessment & Plan (1) SBO (small bowel obstruction): advance diet ambulate home soon Subjective passing BMs pain controlled ambulating Review of Systems Constitutional: no fever and no chills Respiratory: no dyspnea Cardiovascular: no chest pain Gastrointestinal: + abdominal pain (mild); no nausea and no vomiting Physical Exam Constitutional: well developed and well nourished Neck: trachea midline Respiratory: normal respiratory effort, lungs clear to auscultation Cardiovascular: RRR, no murmur, no edema Gastrointestinal (Abdomen): Inspection/Auscultation: abdomen normal to inspection, + abdomen distended and normal bowel sounds Percussion/Palpation: abdomen nontender and no guarding incision clean and dry Skin: no rashes, warm and dry Results & Data Vital Signs (Past 12 Hours) Vital Signs Temp Pulse Resp BP Pulse Ox 07/22/19 07:21 36.7 C 68 16 152/80 H 95 07/21/19 22:56 36.7 C 63 16 147/78 H 96
[2019-07-23 05:49] LABS: Basophils # (auto) 0.02 K/uL (0-0.2); Basophils % (auto) 0.3 %; Eosinophils # (auto) 0.13 K/uL (0-0.5); Eosinophils % (auto) 1.8 %; Hematocrit (blood only) 35.2 % (42-52); Hemoglobin 11.5 g/dL (14.0-18.0); Immature Granulocytes # (auto) 0.01 K/uL (0.00-0.02); Immature Granulocytes % (auto) 0.1 %; Lymphocytes # (auto) 0.59 K/uL (1.2-3.4); Lymphocytes % (auto) 8.2 %; Mean Corpuscular Hemoglobin 32.1 pg (25-34); Mean Corpuscular Hgb Conc 32.7 g/dL (32-36); Mean Corpuscular Volume 98.3 fL (80-100); Mean Platelet Volume 10.8 fL (7.4-10.4); Monocytes # (auto) 0.94 K/uL (0.11-0.59); Monocytes % (auto) 13.1 %; Neutrophils # (auto) 5.48 K/uL (1.4-6.5); Neutrophils % (auto) 76.5 %; Platelet Count 169 K/uL (130-400); RDW Coefficient of Variation 15.3 % (11.5-14.5); RDW Standard Deviation 55.2 fL (36.4-46.3); Red Blood Count 3.58 M/uL (4.7-6.1); White Blood Count 7.17 K/uL (4.8-10.8)
[2019-07-23 06:21] LABS: BUN Creatinine Ratio 18.7 (10-20); Blood Urea Nitrogen 15 mg/dl (7-18); Carbon Dioxide 29 mmol/L (21-32); Chloride 109 mmol/L (98-107); Est GFR (African American) 96.4; Est GFR (Non-African American) 83.2; Glucose 88 mg/dl (70-99); Magnesium 1.9 mg/dl (1.8-2.4); Potassium 3.7 mmol/L (3.5-5.1); Sodium 141 mmol/L (136-145)
--- NOTE | 2019-07-23 08:10 | Surgery Progress Note ---
Date of Service July 23, 2019 Assessment & Plan (1) SBO (small bowel obstruction): Patient can be discharged today from my point of view should not lift anything heavier than [address] until we see him back in the office in 1 week his catheter certainly should be left in until we see him next week He may shower and slowly resume his normal activity Do not think he needs anything for pain other than occasional Tylenol or Motrin Subjective Patient feels fine wants to go home tolerating a diet and his bowels been moving in fact he had a bowel movement this morning Physical Exam Physical Exam: Alert coherent comfortable Bonilla catheter in place clear urine the abdomen is minimally distended incision is healed well there is no drainage or cellulitis Results & Data Vital Signs (Past 12 Hours) Vital Signs Temp Pulse Pulse Resp BP Pulse Ox 07/23/19 07:49 36.5 C 75 13 122/70 94 07/22/19 23:00 36.3 C L 64 16 159/77 H 96 PG Care Time/CCT Total # of Minutes Spent Total Time Spent with Patient: Total time spent is greater than 50% in coordination of care (as documented) at patient's floor/unit and/or counseling patient: Coding Level of Care Code None Diagnoses SBO (small bowel obstruction) K56.609
[2019-07-23] MEDS: PANTOprazole 40 MG TAB PO SCH (08:32)
[2019-07-23] MEDS: ATORVASTATIN 40 MG TAB PO SCH (08:32)
--- NOTE | 2019-07-23 11:24 | Discharge Summary ---
Date of Service July 23, 2019 Admission HPI Per Admitting Provider 84-year-old male with a past medical history of CAD status post CABG x2, hyperlipidemia, GERD, heart disease, hypertension, PAF, BPH, bilateral lower extremity edema, unstable angina who presents as a transfer from [facility] for management and evaluation of SBO. Patient reports the symptoms started this afternoon rapidly. He began with his abdomen becoming sore he described the pain is cyclic in nature ranging from a 10 out of 10 to a 1 out of 10. This persisted for a period of an hour or so at which point his urged him to go to urgent care he presented. He presented to urgent care and was evaluated and subsequently recommended to proceed to the ER. He proceeded [facility] ER where he was evaluated, his white count was determined to be 14, lactate 2.7 glucose 142. He was afebrile but hypertensive at [facility], CT of the abdomen/pelvis was obtained and demonstrated findings consistent with SBO with a possible transition point in the left lower quadrant. No free air or free fluid was observed. Tree-in-bud opacities in the right lower lobe likely representing small airway disease of infection to amatory etiology. [facility] surgery was consulted and reported he will not be able to have surgery secondary to Eliquis furthermore the surgeon goes off call in 2 days. The [facility] service was unwilling to accept him without surgical backup and therefore is transferred to [facility] for further evaluate admission and management of a small bowel obstruction. Upon arrival to [facility] the patient was not no acute distress lying in bed comfortably. He reported his abdominal pain was previously well controlled at [facility] with Dilaudid however has since been worsening, requesting additional analgesia. Otherwise patient denies any recent fevers, chills, nausea, vomiting, diarrhea, chest pressure, chest pain, shortness of breath, focal abdominal pain, unremitting abdominal pain, CVA tenderness, or other concerning signs or symptoms. Patient does report a recent history of constipation occurring today, he strained significantly will try to have a bowel movement earlier today and this causes abdominal pain to worsen in nature. Patient reports last bowel movement was yesterday evening. He has been n.p.o. throughout the day. Acute concerns at present relate to resolution of his SBO. Primary Care Provider: Murali Tracy Principal Diagnosis Small bowel obstruction Discharge Exam Constitutional WD/WN, vitals as above Respiratory normal respiratory effort, lungs clear to auscultation Cardiovascular RRR, no murmur, no edema Gastrointestinal (Abdomen) Inspection/Auscultation: abdomen normal to inspection and normal bowel sounds; abdomen not distended Percussion/Palpation: abdomen soft; abdomen nontender Musculoskeletal no cyanosis or clubbing, extremities motor strength 5/5 Skin no rashes, warm and dry shilpi intact, wound well approximated, no drainage Neurologic moves all extremities and awake Psychiatric A+Ox3, euthymic affect Discharge Data Allergies Allergy/AdvReac Type Severity Reaction Status Date / Time oxymetazoline AdvReac Unknown Fainting Verified 07/18/19 02:21 phenylephrine AdvReac Unknown headache, Unverified 06/14/19 10:49 high BP Consultations 07/18/19 03:28 Consult General Surgery Routine 07/19/19 08:45 Consult Urology Routine Procedures Performed Operation Date: 07/18/19 10:25 Actual Procedures p Exploratory Laparotomy(Not Applicable) - Bernardo Gutiérrez MD Ordered Studies 07/18/19 09:00 FL small bowel study Routine Hospital Course (1) SBO (small bowel obstruction): This patient is an 84-year-old male with a past medical history of CAD status post CABG x2, hyperlipidemia, GERD, heart disease, hypertension, PAF, BPH who presents as a transfer from [facility] for management and evaluation of SBO. Patient without a history of SBOs, or abdominal surgery presented with acute onset of abdominal pain to [facility]. Imaging at their institution was consistent with an SBO, laboratory findings were pertinent for a white count of 14 and a lactate of 2.7. He was transferred here for further evaluation by general surgery -Consulted general surgery - had small bowel follow-through which showed delayed movement of contrast-surgery took him for exploratory laparotomy on 07/18 Findings consistent with multiple bands/webs throughout the small intestine that constricted it and likely contributed to the intestine folding on itself No lysis of adhesions was necessary but the bowel was run and there was no tumor found * Postoperative management as per surgery-improving. passing flatus, BM 07/21 * NG tube was removed after surgery * Tolerating advancing diet * Minimal pain * Cleared by surgery for discharge (2) Acute blood loss anemia: * Hgb dropped to 11.3 from 13.3 due to gross hematuria and then stabilized * Hematuria resolved (3) Cardiomyopathy: * Previously Resolved Cardiomyopathy (Recent Echo 06/08/2019 at [facility] showed LVEF 40%,Global Hypokinesis). Follows with [facility] * Resume home Dyzazide (4) Paroxysmal atrial fibrillation: * Patient with history of paroxysmal atrial fibrillation/flutter chronically anticoagulated with apixaban. He is not on any AV mari blocking agents as an outpatient * Remained in rate controlled atrial fibrillation and flutter here on telemetry * Restart Eliquis upon discharge (5) Benign prostatic hyperplasia with urinary obstruction: * Currently with Bonilla catheter in place which had to be replaced due to gross hematuria and urinary retention on 07/19 * Thought to be from Bonilla trauma dn lodged in prostate after patent tried to pull it out on his own * Appreciate urology management-was a difficult Bonilla placement * Now hematuria resolved, draining well * Will leave in Bonilla at discharge and follow up with urology (6) Gross hematuria: * As above, started after patient tried to pull his own Bonilla catheter out on the night of 07/18 * Urology management appreciated * Now resolved (7) CAD in [place] artery: * With a history of CABG * No ischemic changes on EKG, no chest pains * Continue atorvastatin, and continue to hold isosorbide (8) Esophageal reflux: * Patient with a history of chronic GERD well-controlled on esomeprazole 40 mg at home. * Continue protonix 40mg PO daily (9) Hypercholesterolemia: * Continue home atorvastatin 80mg (10) Atrial flutter, paroxysmal: * As above (11) Edema of both legs: * No current edema * Resume Dyazide on discharge (12) Thrombocytopenia: * resolved * Consumptive, given gross hematuria (13) DVT prophylaxis: * SCDs only due to surgery and hematuria Total Time Total Time Spent Total Time Spent (In Minutes): greater than 30 minutes Discharge Plan Discharge Items Patient Disposition: Home - Self-Care Reason For Visit: ACUTE ABDOMINAL PAIN, SMALL BOWEL OBSTRUCTION Discharge Diagnosis: small bowel obstruction Activity: Per Instructions section Lifting: No more than 10 pounds Bathing: No limitations Non-emergency contact: Primary Care Provider Call non-emergency contact if: you have any medication questions, your symptoms worsen, your pain is not controlled, you have a fever, your wound has increased redness, your wound has increased drainage and your wound pain has increased Follow-up/Referrals: Eliazar Thorne MD [Physician] - 07/31/19 3:40 pm (follow up in 2 weeks) Bernardo Gutiérrez MD [Surgeon] - 08/01/19 10:00 am (Please call the office to schedule a follow up appointment in clinic within 1 week) Murali Tracy D.O. [Primary Care Provider] - 08/02/19 2:00 pm (Follow up in one week ) Diet: Other - See Diet Comment Diet Comment: advance your diet as tolerated Addtl Attending Provider Instructions: (1) SBO (small bowel obstruction): -Consulted general surgery -had a small bowel follow-through which showed delayed movement of contrast-surgery then took you for an exploratory laparotomy on 07/18 - Findings consistent with multiple bands/webs throughout the small intestine that constricted it and likely contributed to the intestine folding on itself - Continue Tylenol as needed for pain - Do not lift heavier than 10 pounds - You may shower and slowly resume his normal activity (2) Acute blood loss anemia: Your hemoglobin dropped to 11.3 from 13.3 due to hematuria (blood in the urine) and then stabilized (3) Paroxysmal atrial fibrillation: You may restart Eliquis upon discharge with close monitoring for return of blood in your urine, if you are seeing thanh blood (beyond some merida or brown tinge to the urine) or blood clots, please call urology or your doctor for further instruction (4) Benign prostatic hyperplasia with urinary obstruction: Currently with Bonilla catheter in place - this will remain in place until follow up with urology in two weeks. Call your urologist if you are seeing further blood in your urine as discussed above Pending Studies at Discharge: No Stand-Alone Forms: My [employer], Smoking Cessation Medications and DC Order Prescriptions: New acetaminophen [Mapap (acetaminophen)] 325 mg Tablet 650 mg PO Q4H PRN (Reason: pain) Qty: 30 RF: 0 Continued isosorbide mononitrate 120 mg tablet extended release 24 hr 240 mg PO DAILY Qty: 180 RF: 3 atorvastatin 80 mg tablet 80 mg PO DAILY Qty: 90 RF: 3 triamterene-hydrochlorothiazid 37.5-25 mg capsule 1 cap PO DAILY Qty: 90 RF: 0 isosorbide dinitrate 10 mg tablet 5 mg PO ONCE PRN (Reason: pre exercise) Qty: 90 RF: 0 docusate sodium 100 mg tablet 250 mg PO BID RF: 0 esomeprazole magnesium 40 mg capsule,delayed release(DR/EC) 40 mg PO DAILY Qty: 90 RF: 0 cetirizine 10 mg tablet 10 mg PO DAILY RF: 0 ferrous sulfate 325 mg (65 mg iron) tablet 325 mg PO BID RF: 0 multivitamin [Daily Multi-Vitamin] tablet 1 tab PO DAILY RF: 0 nitroglycerin 0.4 mg tablet, sublingual 0.4 mg SL Q5M PRN (Reason: chest pain) Qty: 1 RF: 0 Eliquis 2.5 mg tablet 2.5 mg PO BID RF: 0 Discharge Orders: Discharge Order (Routine); Ordered 07/23/19 Ordered By: Larissa Rodarte/Other Patient Handouts: Surgery Prevent DVT After, Emptying and Cleaning Your Urinary Catheter Bag, Discharge Instructions Caring for Your Leg Bag Admission Data Admit Date/Time: 07/18/19 00:07 Attending Provider: Jamir Cornejo Admit Provider: Jack Zhou Primary Care Provider: Murali Tracy Other Providers: Ivan Arredondo ; Toro Diaz ; Bernardo Gutiérrez ; Murali Neal Jr ; Roger Brewer ; Eliazar Pearson ; My Holder ; Marco Bowie ; Mike Diggs ; Larissa Chowdary Other Interventions: Discharge Summary Assessment (RN) Last Done: 07/23/19 08:21 DC Date/Time DO NOT enter until pt leaves facility: 07/23/19 16:17 Supervising Physician Co-Signing Physician Notes I supervised Larissa Chowdary NP on this patient's care. I examined the patient today independently of her. I discussed the plan of care with her with the plan being as written in her note except for any following changes/exceptions: None. Doing well today. No major concerns. Tolerated lunch without issue. Wants to go home. Coding Level of Care Code D/C Day Management >30 mins Diagnoses SBO (small bowel obstruction) K56.609 Acute blood loss anemia D62 Cardiomyopathy I42.9 Paroxysmal atrial fibrillation I48.0 Benign prostatic hyperplasia with urinary obstruction N40.1; N13.8 Gross hematuria R31.0 CAD in [place] artery I25.10 Esophageal reflux K21.9 Hypercholesterolemia E78.00 Atrial flutter, paroxysmal I48.92 Edema of both legs R60.0 Thrombocytopenia D69.6 DVT prophylaxis Z29.9
== END 2019-07-23 16:17 | disposition home or self-care (01) | DRG 357 ==
LOC: SUATTDRO 07-18 00:07 → 3W 07-18 00:07 → 2E 07-18 14:38 → 3W 07-19 14:38